=== PATIENT | male | born 1940 | race Caucasian/White ===

== ENCOUNTER → 2020-10-02 11:08 | Outpatient (CLI) | payer MEDICARE, OTHER, SELFPAY ==
[2020-10-02 11:59] LABS: Hematocrit 43.6 % (41-53); Hemoglobin 14.7 g/dL (13.5-17.5); Mean Corpuscular HGB Conc 33.7 % (30-36); Mean Corpuscular Hemoglobin 31.3 PG (26-34); Mean Corpuscular Volume 93.1 fL (80-100); Platelet Count 162 X10^3/uL (150-400); Red Blood Cell Count 4.68 X10^6/uL (4.5-5.9); Red Cell Distribution Width 14.1 % (11.6-14.8); White Blood Cell Count 6.5 X10^3/uL (4.5-11.0)
[2020-10-02 12:21] LABS: Alanine Aminotransferase 42 IU/L (<50); Albumin 4.6 g/dL (3.5-5.0); Albumin Globulin Ratio 1.9 (1.0-2.8); Alkaline Phosphatase 66 U/L (38-126); Aspartate Aminotransferase 51 IU/L (17-59); BUN Creatinine Ratio 25.6 (6-22); Bilirubin Total 0.8 mg/dL (0.2-1.3); Blood Urea Nitrogen 21 mg/dL (9-20); Calcium 9.8 mg/dL (8.4-10.2); Carbon Dioxide 30 mmol/L (22-32); Chloride 104 mmol/L (98-107); Cholesterol 133 mg/dL (140-199); Estimated Glomerular Filt Rate > 60.0 mL/min (>60); Globulin 2.4 g/dL (1.7-4.1); Glucose 103 mg/dL (80-110); HDL Cholesterol 59 mg/dL (40-60); HEMOLYSIS < 15 (0-50); LDL Cholesterol Calculated 63 mg/dL (<100); Potassium 4.9 mmol/L (3.4-5.1); Sodium 140 mmol/L (137-145); Triglycerides 54 mg/dL (35-150)
[2020-10-02 13:07] LABS: Thyroid Stimulating Hormone 1.66 uIU/mL (0.47-4.68)
== END ==
PROVIDERS: Family Provider Internal Medicine; PCP Internal Medicine; Referring Provider Internal Medicine Cardiovascular Disease; Visit Provider Internal Medicine Cardiovascular Disease
DX: I70.0 Atherosclerosis of aorta (principal); I73.9 Peripheral vascular disease, unspecified; I48.20 Chronic atrial fibrillation, unspecified; D68.69 Other thrombophilia; I48.91 Unspecified atrial fibrillation; I10 Essential (primary) hypertension; E78.5 Hyperlipidemia, unspecified; I25.10 Atherosclerotic heart disease of native coronary artery without angina pectoris
CPT/HCPCS: 36415; 80053; 80061; 84443; 85027

== ENCOUNTER → 2020-12-21 13:36 | Outpatient (CLI) | payer MEDICARE, OTHER, SELFPAY ==
[2020-12-21] MEDS: COVID-19 VACC #1, MRNA(MOD) 100 MCG/0.5 ML VIAL IM (13:52)
== END ==
PROVIDERS: Family Provider Internal Medicine; PCP Internal Medicine; Visit Provider Internal Medicine
DX: Z23 Encounter for immunization (principal)
CPT/HCPCS: 0011A; 91301

== ENCOUNTER → 2021-01-18 13:12 | Outpatient (CLI) | payer MEDICARE, OTHER, SELFPAY ==
[2021-01-18] MEDS: COVID-19 VACC #2, MRNA(MOD) 100 MCG/0.5 ML VIAL IM (13:18)
== END ==
PROVIDERS: Family Provider Internal Medicine; PCP Internal Medicine; Visit Provider Internal Medicine
DX: Z23 Encounter for immunization (principal)
CPT/HCPCS: 0012A; 91301

== ENCOUNTER → 2022-05-21 11:19 | Outpatient (CLI) | payer MEDICARE, OTHER, SELFPAY ==
[2022-05-21 12:36] LABS: Hematocrit 37.3 % (41-53); Hemoglobin 12.9 g/dL (13.5-17.5); Mean Corpuscular HGB Conc 34.5 % (30-36); Mean Corpuscular Hemoglobin 31.4 PG (26-34); Mean Corpuscular Volume 91.1 fL (80-100); Platelet Count 147 X10^3/uL (150-400); Red Cell Distribution Width 14.3 % (11.6-14.8); White Blood Cell Count 5.1 X10^3/uL (4.5-11.0)
[2022-05-21 13:17] LABS: HEMOLYSIS < 15 (0-50); Iron 89 ug/dL (49-181)
[2022-05-21 13:28] LABS: Alanine Aminotransferase 41 IU/L (<50); Albumin 4.6 g/dL (3.5-5.0); Albumin Globulin Ratio 2.3 (1.0-2.8); Alkaline Phosphatase 67 U/L (38-126); Aspartate Aminotransferase 47 IU/L (17-59); BUN Creatinine Ratio 21.3 (6-22); Bilirubin Total 0.7 mg/dL (0.2-1.3); Blood Urea Nitrogen 19 mg/dL (9-20); Calcium 9.5 mg/dL (8.4-10.2); Carbon Dioxide 29 mmol/L (22-32); Chloride 104 mmol/L (98-107); Cholesterol 126 mg/dL (140-199); Estimated Glomerular Filt Rate > 60 mL/min (>60); Glucose 67 mg/dL (80-110); HDL Cholesterol 78 mg/dL (40-60); LDL Cholesterol Calculated 36 mg/dL (<100); Potassium 4.5 mmol/L (3.4-5.1); Sodium 140 mmol/L (137-145); Total Protein 6.6 g/dL (6.3-8.2); Triglycerides 60 mg/dL (35-150)
[2022-05-21 13:29] LABS: Percent Iron Saturation 29 % (20-50); Total Iron Binding Capacity 305 ug/dL (261-462); Transferrin 234 mg/dL (206-381)
[2022-05-21 13:50] LABS: TSH w/ Reflex to FT4 1.24 uIU/mL (0.47-4.68)
[2022-05-21 14:04] LABS: Ferritin 133 ng/mL (18-464); HEMOLYSIS < 15 (0-50)
[2022-05-21 14:19] LABS: Vitamin B12 505 pg/mL (239-931)
== END ==
PROVIDERS: Family Provider Internal Medicine; PCP Internal Medicine; Referring Provider Internal Medicine; Visit Provider Internal Medicine
DX: D64.9 Anemia, unspecified (principal); E53.8 Deficiency of other specified B group vitamins; I48.20 Chronic atrial fibrillation, unspecified; Z79.01 Long term (current) use of anticoagulants; E78.2 Mixed hyperlipidemia
CPT/HCPCS: 36415; 80053; 80061; 82607; 82728; 83540; 83550; 84443; 85027

== ENCOUNTER 2022-05-29 09:13 | Outpatient (RCR) | payer MEDICARE, OTHER, SELFPAY ==
--- NOTE | 2022-05-29 10:09 | ST.OPIE ---
Visit Care Team Role Provider Type Yunier Rivas MD Attending Provider Physician Family Provider Primary Care Provider Referring Provider Specialty: Internal Medicine Address: [address] [place] [address], [id number] Email: [email or web address] Speech-Language Pathology Initial Evaluation [employer] Clinical Swallow Evaluation Start: 05/29/22 09:21 Freq: Status: Active Protocol: Document 05/29/22 09:21 ZS (Rec: 05/29/22 09:27 ZS [id number]) Clinical Swallow Evaluation Session Time Visit Start Time 09:30 Visit Stop Time 10:00 Total Visit Minutes 30 Visit Information Visit Number Initial Evaluation Plan of Care Dates 05/29/2022 - 11/22/2022 Insurance Information Medicare Referral Referring Provider Dr. Rivas Reason for Referral cough and throat clearing with swallowing Setting Assessment Location Outpatient Care Visit Type Note Type Initial evaluation Patient Information Identification Type Name History Cooper Blount is a 81-year-old male referred for speech therapy due to being slightly anemic and having difficulty swallowing. He reported cough and throat clearing about 1-2 times per week over the past 2 years. Jose Alejandro added he sometimes feels like things are sticking in his throat and he has been hoarse. Medical history indicates a mild resting tremor and former smoking. Subjective Observations Jose Alejandro reported increased hoarseness and a family history of vocal polyp. Minimal hoarseness perceived by this [employer] during assessment, and discussed referral to ENT as pt and his have noticed vocal changes in the past year. Pt reported he is slightly anemic and would like to determine if swallowing difficulties may be contributing to this. Reported by Patient Other Symptoms Coughing,Food gets stuck Current Diet Regular Baseline Feeding Method Independent in self-feeding Objective Assessment Mental Status Alert,Responsive,Cooperative Oral Integrity WFL Dentition Within normal limits Lip Function Within normal limits Observation of Lips at Rest Symmetrical Pucker Within normal limits Lip Retraction Within normal limits Alternating Pucker/Lip Retraction Within normal limits Tongue Function Within normal limits Observations of Tongue at Rest Within normal limits Tongue Protrusion Within normal limits Tongue Retraction Within normal limits Tongue Lateralization Within normal limits Jaw Function Within normal limits Observations of Jaw at Rest Within normal limits Jaw Opening Within normal limits Jaw Closing Within normal limits Hard/Soft Palate Function Within normal limits Observations of Hard/Soft Palate Within normal limits Comment Completed oral motor exam. Pt presented with symmetrical structures at rest and in motion. Lip, tongue, and jaw strength and ROM were WNL. Pt maintained labial seal and exhibited hyolaryngeal elevation and excursion WNL. Dentition present and WNL, pt reported no difficulty chewing . Structure and function of oral mechanism appears WNL for the purposes of speech and swallowing. Food and Liquid Trials Position During Assessment Upright (90 degrees),In chair Liquids Trialed Thin,[place] Solids Trialed Puree,Dysphagia Mechanical, Dysphagia Advanced,Mechanical Soft,Regular Administration Type Tea spoon,Cup single sip,Self- feeding Oral Impairment Within normal limits Oral Phase Comments No anterior loss of bolus. A/P propulsion and mastication were timely and efficient. No oral residue observed following swallow. No concerns with oral phase of swallowing at this time. Pharyngeal Impairment Within normal limits Pharyngeal Phase Comments Hyolaryngeal elevation and excursion was WNL. Pt observed to hold his head with slight tilt back when swallowing, and stated his doctor recommended a chin tuck and head turn to either right or left to reduce food going down the wrong way which pt reported is hard to remember to do. No overt signs or symptoms of aspiration observed and no difficulty swallowing reported by pt. Unable to rule out silent aspiration with clinical swallow evaluation. Fatigue/Endurance Endurance WNL Comment No concerns for fatigue reported by pt and no signs of fatigue observed during assessment. Findings Swallowing Function Within normal limits Severity of Swallow Impairment Within normal limits Comment The pt presents with swallowing WNL. Due to concerns for structural or functional abnormalities that are unable to be assessed with clinical swallow evaluation, it is recommended pt participate in modified barium swallow study (MBSS). MBSS will inform plan of care and determine if speech therapy for swallowing is necessary at this time. Pt may also consider a referral for an ENT for visualization of any structural abnormalities on the vocal folds that may be impacting vocal quality. Recommendations Instrumental Assessment Yes Recommended Solids Regular Recommended Liquids Thin Safety Precautions/Swallowing Remain upright (90 degrees) Recommendations during all oral intake,Upright position at least 30 minutes after meals,Small bites and sips when eating,Slow rate; swallow between bites Medication Recommendations As Tolerated Referrals Recommended Referrals Otolaryngology/ENT Education Patient/Caregiver Education Described results of evaluation,Patient expressed understanding of evaluation, Patient expressed agreement with goals & treatment plans, Patient expressed understanding of safety precautions,Patient expressed understanding of feeding recommendations Goals Short-term Goals 1. Pt will participate in modified barium swallow study to inform plan of care.
--- NOTE | 2022-05-29 10:11 | ST.OPIE ---
Visit Care Team Role Provider Type Yunier Rivas MD Attending Provider Physician Family Provider Primary Care Provider Referring Provider Specialty: Internal Medicine Address: [address] [place] [address], [id number] Email: [email or web address] Speech-Language Pathology Initial Evaluation [employer] Clinical Swallow Evaluation Start: 05/29/22 09:21 Freq: Status: Active Protocol: Document 05/29/22 09:21 ZS (Rec: 05/29/22 09:27 ZS [id number]) Clinical Swallow Evaluation Session Time Visit Start Time 09:30 Visit Stop Time 10:00 Total Visit Minutes 30 Visit Information Visit Number Initial Evaluation Plan of Care Dates 05/29/2022 - 11/22/2022 Insurance Information Medicare Referral Referring Provider Dr. Rivas Reason for Referral cough and throat clearing with swallowing Setting Assessment Location Outpatient Care Visit Type Note Type Initial evaluation Patient Information Identification Type Name History Cooper Blount is a 81-year-old male referred for speech therapy due to being slightly anemic and having difficulty swallowing. He reported cough and throat clearing about 1-2 times per week over the past 2 years. Jose Alejandro added he sometimes feels like things are sticking in his throat and he has been hoarse. Medical history indicates a mild resting tremor and former smoking. Subjective Observations Jose Alejandro reported increased hoarseness and a family history of vocal polyp. Minimal hoarseness perceived by this [employer] ENGINEER during assessment, and discussed referral to ENT as pt and his have noticed vocal changes in the past year. Pt reported he is slightly anemic and would like to determine if swallowing difficulties may be contributing to this. Reported by Patient Other Symptoms Coughing,Food gets stuck Current Diet Regular Baseline Feeding Method Independent in self-feeding Objective Assessment Mental Status Alert,Responsive,Cooperative Oral Integrity WFL Dentition Within normal limits Lip Function Within normal limits Observation of Lips at Rest Symmetrical Pucker Within normal limits Lip Retraction Within normal limits Alternating Pucker/Lip Retraction Within normal limits Tongue Function Within normal limits Observations of Tongue at Rest Within normal limits Tongue Protrusion Within normal limits Tongue Retraction Within normal limits Tongue Lateralization Within normal limits Jaw Function Within normal limits Observations of Jaw at Rest Within normal limits Jaw Opening Within normal limits Jaw Closing Within normal limits Hard/Soft Palate Function Within normal limits Observations of Hard/Soft Palate Within normal limits Comment Completed oral motor exam. Pt presented with symmetrical structures at rest and in motion. Lip, tongue, and jaw strength and ROM were WNL. Pt maintained labial seal and exhibited hyolaryngeal elevation and excursion WNL. Dentition present and WNL, pt reported no difficulty chewing . Structure and function of oral mechanism appears WNL for the purposes of speech and swallowing. Food and Liquid Trials Position During Assessment Upright (90 degrees),In chair Liquids Trialed Thin,[place]menia Solids Trialed Puree,Dysphagia Mechanical, Dysphagia Advanced,Mechanical Soft,Regular Administration Type Tea spoon,Cup single sip,Self- feeding Oral Impairment Within normal limits Oral Phase Comments No anterior loss of bolus. A/P propulsion and mastication were timely and efficient. No oral residue observed following swallow. No concerns with oral phase of swallowing at this time. Pharyngeal Impairment Within normal limits Pharyngeal Phase Comments Hyolaryngeal elevation and excursion was WNL. Pt observed to hold his head with slight tilt back when swallowing, and stated his doctor recommended a chin tuck and head turn to either right or left to reduce food going down the wrong way which pt reported is hard to remember to do. No overt signs or symptoms of aspiration observed and no difficulty swallowing reported by pt. Unable to rule out silent aspiration with clinical swallow evaluation. Fatigue/Endurance Endurance WNL Comment No concerns for fatigue reported by pt and no signs of fatigue observed during assessment. Findings Swallowing Function Within normal limits Severity of Swallow Impairment Within normal limits Comment The pt presents with swallowing WNL. Due to concerns for structral or functional abnormalities that are unable to be assessed with clinical swallow evaluation, it is recommended pt participate in modified barium swallow study (MBSS). MBSS will inform plan of care and determine if speech therapy for swallowing is necessary at this time. Pt may also consider a referral for an ENT for visualization of any structural abnormalities on the vocal folds that may be impacting vocal quality. Recommendations Instrumental Assessment Yes Recommended Solids Regular Recommended Liquids Thin Safety Precautions/Swallowing Remain upright (90 degrees) Recommendations during all oral intake,Upright position at least 30 minutes after meals,Small bites and sips when eating,Slow rate; swallow between bites Medication Recommendations As Tolerated Referrals Recommended Referrals Otolaryngology/ENT Education Patient/Caregiver Education Described results of evaluation,Patient expressed understanding of evaluation, Patient expressed agreement with goals & treatment plans, Patient expressed understanding of safety precautions,Patient expressed understanding of feeding recommendations Goals Short-term Goals 1. Pt will participate in modified barium swallow study to inform plan of care.
--- NOTE | 2022-05-29 10:11 | ST.OPPOC ---
Physical, Occupational & Speech Therapy At [facility] Visit Care Team Role Provider Type Yunier Rivas MD Attending Provider Physician Family Provider Primary Care Provider Referring Provider Address: [address] [place] [address], [id number] Speech Pathology Plan of Care Plan of Care Dates 05/29/2022 - 11/22/[address] Rivas Patient History Cooper Blount is a 81-year-old male referred for speech therapy due to being slightly anemic and having difficulty swallowing. He reported cough and throat clearing about 1-2 times per week over the past 2 years. Jose Alejandro added he sometimes feels like things are sticking in his throat and he has been hoarse. Medical history indicates a mild resting tremor and former smoking. Short-term Goals 1. Pt will participate in modified barium swallow study to inform plan of care. Comment: Electronically Signed by: TRISHA Candelaria 05/29/22 1011 If you are in agreement with this Plan of Care, please return a signed and dated copy. I have reviewed this Plan of Care and certify that the skilled therapy services above are required to meet the patient?s needs. Physician Signature Date Printed Name and Credentials Clinical Instructor Signature Printed Name and Credentials
--- NOTE | 2022-07-31 14:30 | ST.OPDS ---
Visit Care Team Role Provider Type Yunier Rivas MD Attending Provider Physician Family Provider Primary Care Provider Referring Provider Address: [address] [place] [address], [id number] CUTTING AND SPLICING SUPERVISOR Treatment Note CUTTING AND SPLICING SUPERVISOR Treatment Note Start: 07/31/22 14:27 Freq: Status: Active Protocol: Document 07/31/22 14:28 ZS (Rec: 07/31/22 14:30 ZS [id number]) Speech Pathology Treatment Note Visit Information Plan of Care Dates 05/29/2022 - 11/22/2022 Insurance Information Medicare Setting Treatment Setting Outpatient Care Visit Type Note Type Discharge Summary General Information Patient History Cooper Blount is a 81-year-old male referred for speech therapy due to being slightly anemic and having difficulty swallowing. He reported cough and throat clearing about 1-2 times per week over the past 2 years. Jose Alejandro added he sometimes feels like things are sticking in his throat and he has been hoarse. Medical history indicates a mild resting tremor and former smoking. Jose Alejandro reported increased hoarseness and a family history of vocal polyp. Minimal hoarseness perceived by this CUTTING AND SPLICING SUPERVISOR during assessment, and discussed referral to ENT as pt and his have noticed vocal changes in the past year. Pt reported he is slightly anemic and would like to determine if swallowing difficulties may be contributing to this. The pt presents with swallowing WNL. Due to concerns for structural or functional abnormalities that are unable to be assessed with clinical swallow evaluation, it is recommended pt participate in modified barium swallow study (MBSS). MBSS will inform plan of care and determine if speech therapy for swallowing is necessary at this time. Pt may also consider a referral for an ENT for visualization of any structural abnormalities on the vocal folds that may be impacting vocal quality. Subjective Identification Type Name Identification Reconciled With Medical Record Chief Complaint(s) Swallowing Objective Short Term Goals 1. Pt will participate in modified barium swallow study to inform plan of care. Treatment Activities Called pt to follow-up regarding modified barium swallow study and POC. Pt indicated his PCP is not going to pursue a MBS at this time and pt is in agreement with this decision. Discharging from speech therapy. Plan Provided Patient/Caregiver Instruction Plan of Care Therapy Recommendations Discharge from Speech Therapy Reason for Discharge Per PCP, no further testing at this time.
== END 2022-08-01 08:02 ==
LOC: SP 09:13
PROVIDERS: Family Provider Internal Medicine; PCP Internal Medicine; Referring Provider Internal Medicine; Visit Provider Internal Medicine
DX: R13.10 Dysphagia, unspecified (principal)
CPT/HCPCS: 92610

== ENCOUNTER → 2022-06-04 10:18 | Outpatient (CLI) | payer MEDICARE, OTHER, SELFPAY ==
[2022-06-04 12:44] LABS: COVID19 -Nasal RAPID Negative (Negative)
== END ==
PROVIDERS: Family Provider Internal Medicine; PCP Internal Medicine; Visit Provider Surgery
DX: Z20.822 Contact with and (suspected) exposure to COVID-19 (principal); Z01.812 Encounter for preprocedural laboratory examination
CPT/HCPCS: 87635; C9803

== ENCOUNTER 2022-06-05 08:03 | Day surgery (SDC) | payer MEDICARE, OTHER, SELFPAY ==
--- NOTE | 2022-06-05 | PATH_ITS ---
[facility] Accession Number: [id number] No. of containers..02 Tissue . 01 Material submitted: . PART A: esophagus - MID ESOPHAGUS BIOPSY PART B: esophagus - UPPER ESOPHAGUS BIOPSY . 01 Diagnosis: A-B. 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 Intraepithelial eosinophils are not increased. Negative for dysplasia and malignancy. JNL 06/06/2022 1224 Local . 01 Electronically signed: . Candy Curran MD, Pathologist NPI- [id number] . 01 Gross description: . Part A: MID ESOPHAGUS BIOPSY: Received in formalin are 3 fragment(s) of chairez, soft tissue measuring 0.4 x 0.1 x 0.1 cm to 0.3 x 0.2 x 0.1 cm submitted entirely in 1 cassette(s) Part B: UPPER ESOPHAGUS BIOPSY: Received in formalin are 4 fragment(s) of chairez, soft tissue measuring 0.4 x 0.2 x 0.1 cm to 0.2 x 0.1 x 0.1 cm submitted entirely in 1 cassette(s) /CPE 06/06/2022 0259 Local . 01 Pathologist provided ICD-10: R13.10 . 01 CPT . 638217, [id number] Specimen Comment: A courtesy copy of this report has been sent to [phone] Performed at: 01 [facility] [address] [place] [address], [place], [place] [id number] MD Richmond Harrison MD Phone: [phone]
[2022-06-05 08:29] VITALS: BP 152/78; PULSE 44; RESP 16; TEMP 36.2; O2SAT 98; BMI 25.6
[2022-06-05] MEDS: LACTATED RINGERS 1,000 ML 150 ML IV (08:52)
--- NOTE | 2022-06-05 09:09 | PM.PREOP ---
Pre-operative Note COVID-19 COVID-19 status: Negative Result date/Date tested (Pos, Neg/Pending): 06/04/22 Interval Note History & Physical reviewed/Exam performed by Physician: Yes Changes to H&P: No ASA Class (for procedural sedation): II
[2022-06-05] MEDS: LIDOCAINE 4% SOLN 50 ML 20 ML TOP (09:15)
[2022-06-05] MEDS: fentaNYL 250 MCG/5 ML INJ 50 MCG IV (09:17)
[2022-06-05] MEDS: MIDAZOLAM 5 MG/5 ML VIAL 3 MG IV (09:17)
--- NOTE | 2022-06-05 09:27 | PM.OP.EGD ---
Operative Date/Time/Diagnoses Date of procedure: 06/05/22 Time of procedure: 09:28 Pre-op diagnosis: Dysphagia Post-op diagnosis: same Procedure & Clinicians Study performed: Esophagogastroduodenoscopy Same procedure as scheduled: Yes Surgeon: Urbano Card Procedure Notes Procedure in detail: Surgeon: Urbano Card MD A timeout was performed. Topical lidocaine was administered to the posterior oropharynx. A bite blocked was placed. The patient was positioned in the left lateral decubitus position. Sedation was administered with Versed and fentanyl. The endoscope was inserted through the bite block and passed through the esophagus and stomach and into the duodenum. The duodenal mucosa appeared normal. A photograph was taken. The scope was withdrawn into the duodenal bulb and no abnormality was noted. The scope was withdrawn into the stomach. No abnormalities were noted in the stomach. The scope was retroflexed and no hiatal hernia was noted. The scope was withdrawn into the esophagus and the distal esophagus appeared normal. The upper and middle thirds of the esophagus demonstrated nodular irregularity of the mucosa without a jarod mass ulceration. Random biopsies were taken from the midesophagus and upper esophagus with cold forceps. The scope was withdrawn. The patient was awakened and brought to recovery. Versed: 3 Fentanyl: 50 Findings: Irregularity of the mid and upper esophagus without jarod mass or ulceration Sedation minutes: 8 Post-procedure Recommendations: Will call with biopsy results Disposition: PACU
[2022-06-05 09:31] VITALS: BP 120/70; PULSE 47; RESP 10; TEMP 36; O2SAT 98
[2022-06-05 09:36] VITALS: BP 119/44; PULSE 53; RESP 13; TEMP 36.4; O2SAT 97
[2022-06-05 09:41] VITALS: BP 121/60; PULSE 50; RESP 12; TEMP 36.1; O2SAT 97
[2022-06-05 09:51] VITALS: BP 113/68; PULSE 52; RESP 14; TEMP 36.4; O2SAT 98
--- NOTE | 2022-06-05 09:57 | SUR.PHASEII ---
Verbal order received from Dr Card that patient may restart Xarelto today at normal dose and time.
== END 2022-06-05 10:09 | disposition home or self-care (01) ==
PROVIDERS: Family Provider Internal Medicine; PCP Internal Medicine; Referring Provider Surgery; Visit Provider Surgery
PROC: 0DJ08ZZ Inspection of Upper Intestinal Tract, Via Natural or Artificial Opening Endoscopic (ICD-10-PCS; CPT 43235; principal; 2022-06-05 09:15)
DX: R13.10 Dysphagia, unspecified (principal); D64.9 Anemia, unspecified; I48.20 Chronic atrial fibrillation, unspecified; N40.1 Benign prostatic hyperplasia with lower urinary tract symptoms; I10 Essential (primary) hypertension; E78.2 Mixed hyperlipidemia; Z86.010 Personal history of colon polyps; Z79.01 Long term (current) use of anticoagulants; Z86.718 Personal history of other venous thrombosis and embolism; Z87.891 Personal history of nicotine dependence
CPT/HCPCS: 43239; 99152; J2250; J3010

== ENCOUNTER 2022-06-08 09:59 | Emergency (ER) | payer MEDICARE, OTHER, SELFPAY ==
[2022-06-08 10:06] VITALS: BP 183/82; PULSE 52; RESP 18; O2SAT 99
--- NOTE | 2022-06-08 10:09 | DI.CT.S_ITS ---
PROCEDURE: CT HEAD/BRAIN WO CON INDICATIONS: fall 3 days ago, anticoagulated TECHNIQUE: Noncontrast 4.5 mm thick angled axial sections acquired from the foramen magnum to the vertex, with coronal and sagittal reformats. For radiation dose reduction, the following was used: automated exposure control, adjustment of mA and/or kV according to patient size. COMPARISON: None. FINDINGS: Image quality: Excellent. CSF spaces: Basal cisterns are patent. No extra-axial fluid collections. Ventricles are normal in size and shape. Brain: No midline shift. No intracranial masses or hemorrhage. Garcia-white matter interface is normal. Mild atrophy and multifocal white matter chronic ischemic change. There is enlarged perivascular space on the left, and mild senescent calcification in both basal ganglia. Skull and face: Calvarium and visualized facial bones are intact, without suspicious lesions. Sinuses: Visualized sinuses and mastoids are clear. IMPRESSION: Atrophy and chronic ischemic change without acute hemorrhage or mass effect. Approved by: Morro Somers M.D. on 06/08/2022 at 10:23
--- NOTE | 2022-06-08 10:26 | ED.FALL ---
HPI - Fall General Chief Complaint: Fall Stated Complaint: Fall 3 days ago- thinks broken rib right side Time Seen by Provider: 06/08/22 10:26 Source: patient Mode of arrival: Ambulatory History of Present Illness HPI Narrative: Patient here for evaluation of right lower posterior rib pain after he fell last week either Thursday or Thursday at home. Patient states he is on Xarelto for atrial fibrillation. He does have a [place] filter for history DVTs from nearly 20 years ago. Patient states nearly 20 years ago he did have a very bad fall and had bleeding in the brain. Since then his balance has not been the same. Last week he thought he was off balance when he was stepping back when in fact he states he really was not off balance and he tried to overcorrect but fell backwards breaking a table/hitting it with his right lower posterior ribs. He did hit his head on the left occipital scalp area. No loss of consciousness. Since then no headache dizziness nausea vision changes or altered mental status. Denies any neck pain or midline spine pain. Denies any other injuries. Related Data Home Medications Medication Instructions Recorded Confirmed atorvastatin 40 mg tablet 40 mg PO HS ##0 01/24/18 06/05/22 metoprolol succinate 25 mg 12.5 mg PO QDAY ##0 01/24/18 06/05/22 tablet,extended release 24 hr (Toprol XL) allopurinol 100 mg tablet 100 mg PO BID 04/25/22 06/05/22 compress.stocking,knee,reg,med 04/25/22 06/02/22 (Jobst Anti-Embolism Stocking) ezetimibe 10 mg tablet 10 mg PO DAILY 04/25/22 06/05/22 multivitamin 0.5 tab PO BID 04/25/22 06/05/22 rivaroxaban 20 mg tablet (Xarelto) 20 mg PO DAILY 04/25/22 06/05/22 Previous Rx's Medication Instructions Recorded hydrocodone 5 mg-acetaminophen 325 1 tab PO Q6H PRN pain #10 tabs 06/08/22 mg tablet ondansetron 4 mg disintegrating 4 mg PO Q8H PRN nausea and 06/08/22 tablet vomiting #10 tabs Allergies Allergy/AdvReac Type Severity Reaction Status Date / Time amoxicillin [AMOXICILLIN] Allergy Mild RASH AND Verified 06/05/22 08:25 ITCHING Review of Systems Review of Systems Narrative: GENERAL: Denies chills, fatigue, malaise, fever, sweats. HEENT: Denies sinus pain, ear pain, sore throat RESPIRATORY: Denies dyspnea, cough CARDIOVASCULAR: Denies chest pain, palpitations GASTROINTESTINAL: Denies nausea, vomiting, abdominal pain : Denies dysuria, frequency, hematuria MUSCULOSKELETAL: Positive for muscle or bony pain SKIN: Denies rash, skin lesions, negative for skin wound NEUROLOGIC: Denies weakness, numbness ROS Unobtainable: All systems reviewed & are unremarkable except as noted in HPI and below Patient History Medical History Anemia BPH w urinary obs/LUTS Chronic anticoagulation Chronic atrial fibrillation Dysphagia Essential hypertension Gait instability Gout History of colonic polyps History of DVT (deep vein thrombosis) Mixed hyperlipidemia Venous insufficiency Social History household members: spouse Smoking Status: Former smoker alcohol intake: never Smoking Status: Former smoker Substance Use Type: does not use Exam Narrative Exam Narrative: GENERAL: in no distress, not toxic not dyspneic HEAD: Normocephalic. Mild tenderness to the left occipital scalp but no can not ecchymosis or edema or crepitus or step-off. EYES: Pupils equal round No scleral icterus. ENT: Mucous membranes moist. NECK: Trachea midline. CARDIOVASCULAR: Regular rate and rhythm without murmurs RESPIRATORY: Clear to auscultation. Breath sounds equal bilaterally. No wheezes, rales, or rhonchi. GASTROINTESTINAL: Abdomen soft, non-tender EXTREMITIES: No gross deformities. Nontender no gross deformities of the bilateral shoulders elbows wrists pelvis hips knees and ankles. BACK: No flank tenderness. No midline tenderness of the thoracic or lumbar spine. There is reproducible proximal rib tenderness of the inferior ribs on the right side, on palpation and deep breath no crepitus or flail. No ecchymosis or bruising seen. No abrasion. NEURO: AOx4. Clear speech no facial droop light touch intact to bilateral face and hands with strong equal server programmer. SKIN: Warm and dry PSYCH: Not anxious, is cooperative Initial Vital Signs Initial Vital Signs: Vital Signs Pulse Rate 52 L 06/08/22 10:06 Respiratory Rate 18 06/08/22 10:06 Blood Pressure 183/82 H 06/08/22 10:06 Pulse Oximetry 99 06/08/22 10:06 Oxygen Delivery Method 06/08/22 10:06 Course Course Course Narrative: No new issues during course of stay Orders Ordered: ED Orders 06/08/22 10:09 CT head/brain wo con Stat 06/08/22 10:34 CT chest abd pel wo con Stat Reevaluation(s) Reevaluation #1: Reviewed results with patient and . They do desire pain medication to help sleep at night. He gets up often to go the bathroom and the ribs hurt him and has hard time getting back to sleep. Return precautions reviewed with patient. CT scan imaging for lungs to be re-evaluated in 3 months with primary care. Time: 12:47 Vital Signs Vital signs: Vital Signs - 8 hr 06/08/22 10:06 Pulse Rate 52 L Respiratory Rate 18 Blood Pressure 183/82 H Pulse Oximetry 99 Oxygen Delivery Method Room Air MDM - Fall Differential Diagnosis Differential diagnosis: Likely compression fracture and other (Rib fractures/scalp contusion/intracranial bleed/contusion.) Imaging Data CT scan - head: Radiologist's Impression: [place] [address] CT Scan Report Signed Patient: Cooper Herrera MR#: [id number] : 1940 Acct:[id number] Age/Sex: 81 / M Date of Service: 06/08/22 Loc: ED Accession Number: [id number] ?? Procedure: CT head/brain wo con Ordering Provider: Yassine Michaels MD PROCEDURE:? CT HEAD/BRAIN WO CON ? INDICATIONS:? fall 3 days ago, anticoagulated ? TECHNIQUE:? Noncontrast 4.5 mm thick angled axial sections acquired from the foramen magnum to the vertex, with coronal and sagittal reformats.? For radiation dose reduction, the following was used:? automated exposure control, adjustment of mA and/or kV according to patient size.? ? COMPARISON:? None. ? FINDINGS:? Image quality:? Excellent.? ? CSF spaces:? Basal cisterns are patent.? No extra-axial fluid collections.? Ventricles are normal in size and shape.? ? Brain:? No midline shift.? No intracranial masses or hemorrhage.? Garcia-white matter interface is normal.? Mild atrophy and multifocal white matter chronic ischemic change.? There is enlarged perivascular space on the left, and mild senescent calcification in both basal ganglia. ? Skull and face:? Calvarium and visualized facial bones are intact, without suspicious lesions.? ? Sinuses:? Visualized sinuses and mastoids are clear.? ? IMPRESSION:? ? Atrophy and chronic ischemic change without acute hemorrhage or mass effect. ? ? ? Approved by: Morro Somers M.D. on 06/08/2022 at 10:23? CT chest abdomen and pelvis: Radiologist's Impression: [place] [address] CT Scan Report Signed Patient: Cooper Herrera MR#: [id number] : 1940 Acct:[id number] Age/Sex: 81 / M Date of Service: 06/08/22 Loc: ED Accession Number: [id number] ?? Procedure: CT chest abd pel wo con Ordering Provider: Yassine Michaels MD PROCEDURE:? CT CHEST ABD PEL WO CON ? INDICATIONS:? Fall/right-sided pain ? TECHNIQUE:? After the administration of oral contrast, 5 mm thick sections acquired from the lung apices to the symphysis pubis.? 5 mm thick coronal and sagittal reformats acquired, with additional 7 mm coronal MIP reformats through the lungs.? For radiation dose reduction, the following was used:? automated exposure control, adjustment of mA and/or kV according to patient size.? ? COMPARISON:? None. ? FINDINGS: ? Chest: ? Cardiovascular:? Heart size is normal.? No evidence of pulmonary embolism, aortic aneurysm or dissection.? Coronary artery vascular calcification present. ? Lungs and pleural spaces:? Right lower lobe ground-glass nodule measures 1.3 cm.? Remainder of the lungs and pleural spaces are clear. ? Lymph nodes:? No mediastinal, hilar or axillary adenopathy. ? Mediastinum:? Unremarkable.? No hiatal hernia.? Thyroid within normal limits. ? Chest Wall and Bones:? Acute posterior rib fractures involve the right 11th and 10th ribs.? No pneumothorax or pulmonary contusion.? Otherwise the sternum and thoracic spine is intact.? Degenerative disc space narrowing and marginal osteophytes noted in the thoracic spine ? Abdomen and Pelvis: ? Liver:? Normal in size and attenuation. No contour deformity present. Biliary system:? No calcified cholelithiasis or pericholecystic inflammation.? No intra or extrahepatic bile duct dilatation. ? Pancreas:? Unremarkable without mass or inflammation evident. ? Spleen:? Normal in size and density. ? Adrenals:? Small 9 mm right adrenal nodule is low-density, probably reflects adenoma.? Minimal peripheral calcification present. ? Reproductive system:? Unremarkable as visualized. ? Urinary system:? Nonobstructive 3 mm right renal calculus.? No hydronephrosis bilaterally. ? Gastrointestinal system:? Moderate fecal debris throughout the colon without evidence of obstruction. ? Lymph nodes:? No mesenteric or retroperitoneal adenopathy. ? Peritoneal spaces: ? No free air. No free fluid.? ? Vasculature:? The IVC, aorta and iliac vasculature are unremarkable. ? Abdominal wall:? Abdominal wall intact without evidence of ventral or inguinal hernias. ? Musculoskeletal:? Lower lumbar spine posterolateral fusion mass in good position.? Several old right pelvic fractures appear well healed with anterior plate and screw hardware.? No evidence of acute pelvic fracture. ? IMPRESSION: ? 1.? Nondisplaced posterior right 10th and 11th rib fractures.? No pulmonary contusion or pneumothorax. ? 2. Old wall healed right-sided pelvic fractures with associated instrumentation.? No acute fracture or hardware failure. ? 3. Incidental 1.3 cm right lower lobe pulmonary ground-glass nodule.? Consider 3 month follow-up CT to assess stability. ? ? ? Approved by: Morro Somers M.D. on 06/08/2022 at 11:00? MDM Narrative Medical decision making narrative: Appropriate for discharge home. Exam and imaging are reassuring. Reviewed results with patient and . Patient cannot take NSAIDs due to Xarelto. Appropriate for pain medication to help sleep at night. Return precautions reviewed with them. They will follow-up in 3 months for findings on CT scan imaging of the lung. Discharge Plan Departure Patient Disposition: Home Clinical Impression: Multiple rib fractures, Contusion of scalp Instructions: DI for Rib Fracture, DI for Contusion, DI for Closed Head Injury Activity Restrictions/Additional Instructions: No driving or operating machinery when taking prescribed pain medication. See family doctor this week for re-evaluation. Use incentive spirometer each hour while awake to exercise the lungs and to prevent pneumonia. Return if worse or for any questions or concerns. See family doctor for re-evaluation possible CT scan of findings on CT scan of your right lung. Prescriptions: New hydrocodone-acetaminophen 5-325 mg tablet 1 tab PO Q6H PRN (Reason: pain) Qty: 10 0RF ondansetron 4 mg tablet,disintegrating 4 mg PO Q8H PRN (Reason: nausea and vomiting) Qty: 10 0RF No Action atorvastatin 40 MG tablet 40 mg PO HS Qty: 0 metoprolol succinate [Toprol XL] 25 MG tablet extended release 24 hr 12.5 mg PO QDAY Qty: 0 ezetimibe 10 mg tablet 10 mg PO DAILY Label Comments: TAKE 1 TABLET BY MOUTH DAILY. GENERIC EQUIVALENT FOR ZETIA Xarelto 20 mg tablet 20 mg PO DAILY Label Comments: TAKE 1 TABLET BY MOUTH EVERY DAY NEEDED allopurinol 100 mg tablet 100 mg PO BID multivitamin Tablet 0.5 tab PO BID (DME) Jobst Anti-Embolism Stocking Misc See Rx Instructions .Route Rx Instructions: Jobst support socks, knee high, open toe, 30-40 mmHg Referrals: Yunier Rivas MD [Primary Care Provider] - Visit Report Forms: Patient Portal/API
--- NOTE | 2022-06-08 10:34 | DI.CT.S_ITS ---
PROCEDURE: CT CHEST ABD PEL WO CON INDICATIONS: Fall/right-sided pain TECHNIQUE: After the administration of oral contrast, 5 mm thick sections acquired from the lung apices to the symphysis pubis. 5 mm thick coronal and sagittal reformats acquired, with additional 7 mm coronal MIP reformats through the lungs. For radiation dose reduction, the following was used: automated exposure control, adjustment of mA and/or kV according to patient size. COMPARISON: None. FINDINGS: Chest: Cardiovascular: Heart size is normal. No evidence of pulmonary embolism, aortic aneurysm or dissection. Coronary artery vascular calcification present. Lungs and pleural spaces: Right lower lobe ground-glass nodule measures 1.3 cm. Remainder of the lungs and pleural spaces are clear. Lymph nodes: No mediastinal, hilar or axillary adenopathy. Mediastinum: Unremarkable. No hiatal hernia. Thyroid within normal limits. Chest Wall and Bones: Acute posterior rib fractures involve the right 11th and 10th ribs. No pneumothorax or pulmonary contusion. Otherwise the sternum and thoracic spine is intact. Degenerative disc space narrowing and marginal osteophytes noted in the thoracic spine Abdomen and Pelvis: Liver: Normal in size and attenuation. No contour deformity present. Biliary system: No calcified cholelithiasis or pericholecystic inflammation. No intra or extrahepatic bile duct dilatation. Pancreas: Unremarkable without mass or inflammation evident. Spleen: Normal in size and density. Adrenals: Small 9 mm right adrenal nodule is low-density, probably reflects adenoma. Minimal peripheral calcification present. Reproductive system: Unremarkable as visualized. Urinary system: Nonobstructive 3 mm right renal calculus. No hydronephrosis bilaterally. Gastrointestinal system: Moderate fecal debris throughout the colon without evidence of obstruction. Lymph nodes: No mesenteric or retroperitoneal adenopathy. Peritoneal spaces: No free air. No free fluid. Vasculature: The IVC, aorta and iliac vasculature are unremarkable. Abdominal wall: Abdominal wall intact without evidence of ventral or inguinal hernias. Musculoskeletal: Lower lumbar spine posterolateral fusion mass in good position. Several old right pelvic fractures appear well healed with anterior plate and screw hardware. No evidence of acute pelvic fracture. IMPRESSION: 1. Nondisplaced posterior right 10th and 11th rib fractures. No pulmonary contusion or pneumothorax. 2. Old wall healed right-sided pelvic fractures with associated instrumentation. No acute fracture or hardware failure. 3. Incidental 1.3 cm right lower lobe pulmonary ground-glass nodule. Consider 3 month follow-up CT to assess stability. Approved by: Morro Somers M.D. on 06/08/2022 at 11:00
--- NOTE | 2022-06-08 12:55 | PC.NURSE ---
Pt educated on incentive spirometer and use, pt provided teach back and demonstrated proper use.
== END 2022-06-08 12:57 | disposition home or self-care (01) ==
PROVIDERS: Emergency Provider Emergency Medicine; Family Provider Internal Medicine; PCP Internal Medicine
DX: S22.41XA Multiple fractures of ribs, right side, initial encounter for closed fracture (principal); S00.03XA Contusion of scalp, initial encounter; W18.09XA Striking against other object with subsequent fall, initial encounter; Z79.01 Long term (current) use of anticoagulants
CPT/HCPCS: 70450; 71250; 74176; 99283

== ENCOUNTER 2022-06-23 18:32 | Emergency (ER) | payer MEDICARE, BC, SELFPAY ==
[2022-06-23 19:33] VITALS: BP 153/65; PULSE 63; RESP 15; TEMP 36.4; O2SAT 96; BMI 25.0
== END 2022-06-23 19:41 | disposition left against medical advice (07) ==
PROVIDERS: Emergency Provider Emergency Medicine; Family Provider Internal Medicine; PCP Internal Medicine
CPT/HCPCS: 99281

== ENCOUNTER 2022-09-01 09:31 | Observation (INO) | payer MEDICARE, BC, SELFPAY ==
[2022-09-01] VITALS (11 sets, daily range): BP systolic 103–196; BP diastolic 53–88; PULSE 38–71; RESP 14–25; TEMP 36.1–36.4; O2SAT 93–100; BMI 25.0
--- NOTE | 2022-09-01 09:46 | DI.RAD.S_ITS ---
PROCEDURE: XR CHEST 1V INDICATIONS: chest pain TECHNIQUE: One view of the chest was acquired. COMPARISON: None. FINDINGS: Surgical changes and devices: None. Lungs and pleura: Lungs are clear. No pleural effusions or pneumothorax. Mediastinum: Mediastinal contours appear normal. Heart size is normal. Bones and chest wall: No suspicious bony lesions. Overlying soft tissues appear unremarkable. IMPRESSION: No acute cardiopulmonary findings Approved by: Morro Somers M.D. on 09/01/2022 at 10:00
--- NOTE | 2022-09-01 09:57 | ED_ITS ---
HPI - Chest Pain General Chief Complaint: Chest Pain Stated Complaint: chest pain 3 days xtory afib Time Seen by Provider: 09/01/22 09:51 Source: patient Mode of arrival: Ambulatory Limitations: no limitations History of Present Illness HPI narrative: Patient is a 81-year-old male. Has a history of atrial fibrillation. Is on Xarelto and also 12.5 mg of metoprolol once a day. He states he is in atrial fibrillation all the time. 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 He is here for evaluation because since Thursday when he wakes up in the morning and stands he states that he has very intense left-sided chest discomfort that lasts for minutes and then completely resolves. He states it does seem to get somewhat worse when he takes a deep breath. He states it feels like someone hit him in the chest. He does not particularly feel like his heart is beating fast or slow or skipping beats. He is not get lightheaded. The symptoms resolve. He is able to go about his daily activities. He states that he occasionally gets a during the rest of the day but not as bad as when he wakes up in the morning. Talib sewell normally is very active and walks multiple miles each day. He is not done that since the chest discomfort only because he was worried about it. He is not currently having symptoms the time my exam. He states that his heart rate is frequently in the 50s/low 60s. Related Data Home Medications Medication Instructions Recorded Confirmed metoprolol succinate 25 mg 12.5 mg PO QDAY ##0 01/24/18 06/24/22 tablet,extended release 24 hr (Toprol XL) allopurinol 100 mg tablet 100 mg PO BID 04/25/22 06/24/22 compress.stocking,knee,reg,med 04/25/22 06/24/22 (Jobst Anti-Embolism Stocking) ezetimibe 10 mg tablet 10 mg PO DAILY 04/25/22 06/24/22 multivitamin 0.5 tab PO BID 04/25/22 06/24/22 rivaroxaban 20 mg tablet (Xarelto) 20 mg PO DAILY 04/25/22 06/24/22 rosuvastatin 40 mg tablet 40 mg PO DAILY Cholesterol control 06/30/22 06/30/22 Previous Rx's Medication Instructions Recorded hydrocodone 5 mg-acetaminophen 325 1 tab PO Q6H PRN pain #10 tabs 06/08/22 mg tablet Allergies Allergy/AdvReac Type Severity Reaction Status Date / Time amoxicillin [AMOXICILLIN] Allergy Mild RASH AND Verified 06/30/22 07:54 ITCHING Review of Systems Review of Systems ROS Unobtainable: All systems reviewed & are unremarkable except as noted in HPI and below Patient History Medical History Anemia BPH w urinary obs/LUTS Chronic anticoagulation Chronic atrial fibrillation Dysphagia Essential hypertension Gait instability Gait instability Gout History of colonic polyps History of DVT (deep vein thrombosis) Mixed hyperlipidemia Pilonidal cyst Pulmonary nodule Venous insufficiency Social History household members: spouse Smoking Status: Never smoker alcohol intake: never Smoking Status: Never smoker Substance Use Type: does not use Exam Initial Vital Signs Initial Vital Signs: Vital Signs Temperature 97.1 F L 09/01/22 09:47 Pulse Rate 71 09/01/22 09:47 Respiratory Rate 17 09/01/22 09:47 Blood Pressure 196/88 H 09/01/22 09:47 Pulse Oximetry 99 09/01/22 09:47 Oxygen Delivery Method 09/01/22 09:47 Const General: cooperative, comfortable, well developed and No ill appearing HENKS Head: normal to inspection and normocephalic Chest Chest: No crepitus and No tenderness Resp Effort & Inspection: normal respiratory effort Auscultation: clear to auscultation bilaterally Cardio Rate: bradycardic Rhythm: regular rhythm GI Inspection: normal to inspection Palpation: soft Skin General: no rashes or lesions noted Neuro General: patient alert, patient awake, patient oriented x3 and moves all extremities Extrem General: normal to inspection and capillary refill normal Psych Appearance: grossly normal Scores HEART Score Heart Score history: Moderately Suspicious Heart Score EKG: Normal Heart Score Age: > or = 65 years old Heart Score risk factors: 1-2 risk factors Heart Score troponin: < or = to normal limit Heart Score Total: 4 Course Orders Ordered: ED Orders 09/01/22 09:46 XR chest 1V Stat EKG-12 Lead Stat 09/01/22 10:00 Complete Blood Count AUTO DIFF Stat Comprehensive Metabolic Panel Stat Lipase Stat Magnesium Stat Troponin & CK Cardiac Panel Stat 09/01/22 12:08 Troponin & CK Cardiac Panel Stat Vital Signs Vital signs: Vital Signs - 8 hr 09/01/22 09:47 09/01/22 10:34 09/01/22 11:00 Temperature 97.1 F L Pulse Rate 71 43 L Respiratory Rate 17 17 Blood Pressure 196/88 H 153/74 H Pulse Oximetry 99 100 Oxygen Delivery Method Room Air 09/01/22 11:00 09/01/22 11:30 09/01/22 11:31 Temperature Pulse Rate 42 L 40 L 51 L Respiratory Rate 17 19 14 Blood Pressure Pulse Oximetry 93 100 100 Oxygen Delivery Method 09/01/22 11:31 09/01/22 12:00 09/01/22 12:04 Temperature Pulse Rate 54 L Respiratory Rate 20 Blood Pressure 146/67 H 185/84 H Pulse Oximetry 99 Oxygen Delivery Method 09/01/22 12:04 09/01/22 12:30 09/01/22 12:31 Temperature Pulse Rate 65 38 L Respiratory Rate 25 H 18 Blood Pressure 135/63 Pulse Oximetry 99 100 Oxygen Delivery Method 09/01/22 12:31 Temperature Pulse Rate 41 L Respiratory Rate 17 Blood Pressure Pulse Oximetry 100 Oxygen Delivery Method MDM - Chest Pain Lab Data Attestation: I reviewed the patient's lab results. Result diagrams: 09/01/22 10:00 09/01/22 10:00 Labs: Lab Results 09/01/22 09/01/22 09/01/22 Range/Units 10:00 10:00 12:08 WBC 3.8 L (4.5-11.0) X10^3/uL RBC 4.39 L (4.5-5.9) X10^6/uL Hgb 13.5 (13.5-17.5) g/dL Hct 40.3 L (41-53) % MCV 91.7 (80-100) fL MCH 30.6 (26-34) PG MCHC 33.4 (30-36) % RDW 13.9 (11.6-14.8) % Plt Count 123 L (150-400) X10^3/uL Neut % (Auto) 53.9 (50-75) % Lymph % (Auto) 33.4 (25-40) % Gonzales % (Auto) 10.0 (3-14) % Eos % (Auto) 2.1 (2-4) % Baso % (Auto) 0.6 (0-2) % Neut # (Auto) 2100 (9083-6843) /uL Lymph # (Auto) 1300 (4000-2804) /uL Gonzales # (Auto) 400 (0-900) /uL Eos # (Auto) 100 (0-450) /uL Baso # (Auto) 0 (0-100) /uL Sodium 139 (137-145) mmol/L Potassium 4.2 (3.4-5.1) mmol/L Chloride 104 (98-107) mmol/L Carbon Dioxide 27 (22-32) mmol/L BUN 19 (9-20) mg/dL Creatinine 0.86 (0.66-1.25) mg/dL Estimated GFR > 60 (>60) mL/min BUN/Creatinine Ratio 22.1 H (6-22) Glucose 104 (80-110) mg/dL Calcium 9.6 (8.4-10.2) mg/dL Magnesium 1.8 (1.6-2.3) mg/dL Total Bilirubin 0.6 (0.2-1.3) mg/dL AST 64 H (17-59) IU/L ALT 72 H (<50) IU/L Alkaline Phosphatase 65 (38-126) U/L Total Creatine Kinase 222 H 220 H (55-170) U/L CK-MB (CK-2) 7.33 H 7.41 H (<2.37) ng/mL CK-MB (CK-2) Rel Index 3.3 3.4 (1.5-5.0) % Troponin I 0.024 0.021 (0.01-0.034) ng/mL Total Protein 7.1 (6.3-8.2) g/dL Albumin 4.5 (3.5-5.0) g/dL Globulin 2.6 (1.7-4.1) g/dL Albumin/Globulin Ratio 1.7 (1.0-2.8) Lipase 143 (23-300) U/L Imaging Data Chest x-ray: Radiologist's Impression: [address] [address] XRay Report Signed Patient: Cooper Herrera MR#: [id number] : 1940 Acct:[id number] Age/Sex: 81 / M Date of Service: 09/01/22 Loc: ED Accession Number: [id number] ?? Procedure: XR chest 1V Ordering Provider: Ayush Chaudhry D.O. PROCEDURE:? XR CHEST 1V ? INDICATIONS:? chest pain ? TECHNIQUE:? One view of the chest was acquired.? ? COMPARISON:? None. ? FINDINGS:? ? Surgical changes and devices:? None.? ? Lungs and pleura:? Lungs are clear.? No pleural effusions or pneumothorax.? ? Mediastinum:? Mediastinal contours appear normal.? Heart size is normal.? ? Bones and chest wall:? No suspicious bony lesions.? Overlying soft tissues appear unremarkable.? ? IMPRESSION:? No acute cardiopulmonary findings ? ? ? Approved by: Morro Somers M.D. on 09/01/2022 at 10:00? ECG Data Attestation: I personally reviewed and interpreted this ECG as follows: Interpretation: Atrial fibrillation Ventricular rate of 41 Normal QRS Normal QTC No ST T wave changes MDM Narrative Medical decision making narrative: No chest pain while here in the ER. AFib on his EKG but no ST T wave changes. Chest x-ray is unremarkable. Troponins are unchanged x2. These are not above the 99th percentile/AMI cut off. Had a stress test approximately 4 years ago. Patient is in AFib. Is bradycardic. Is asymptomatic from the bradycardia. He states his heart rate is normally in the 50s. He walks 4 miles a day. He was told in the past that maybe he should come off of his metoprolol but this decision was never definitively made so he still taking 12.5 mg in the evening. Patient has an intermediate risk heart score. Should be admitted to the hospital for further risk stratification. Discussed the case with Dr. Castañeda with Internal Medicine who will admit for further evaluation. Discussed need for admission with the patient. He expressed understanding and agreement plan. Discharge Plan Departure Patient Disposition: Admitted as Observation Clinical Impression: Chest pain, Atrial fibrillation, Bradycardia Admit Date/Time: 09/01/22 12:59 Admit Provider: Kenny Castañeda
[2022-09-01 10:15] LABS: Add Manual Diff / Slide Review NO; Basophils Absolute Auto 0 /uL (0-100); Basophils Percent Auto 0.6 % (0-2); Eosinophils Absolute Auto 100 /uL (0-450); Eosinophils Percent Auto 2.1 % (2-4); Hematocrit 40.3 % (41-53); Hemoglobin 13.5 g/dL (13.5-17.5); Lymphocytes Absolute Auto 1300 /uL (1100-4500); Lymphocytes Percent Auto 33.4 % (25-40); Mean Corpuscular HGB Conc 33.4 % (30-36); Mean Corpuscular Hemoglobin 30.6 PG (26-34); Mean Corpuscular Volume 91.7 fL (80-100); Monocytes Absolute Auto 400 /uL (0-900); Neutrophils Absolute Auto 2100 /uL (1500-7000); Neutrophils Percent Auto 53.9 % (50-75); Platelet Count 123 X10^3/uL (150-400); Red Blood Cell Count 4.39 X10^6/uL (4.5-5.9); Red Cell Distribution Width 13.9 % (11.6-14.8); White Blood Cell Count 3.8 X10^3/uL (4.5-11.0)
[2022-09-01 10:31] LABS: Alanine Aminotransferase 72 IU/L (<50); Albumin 4.5 g/dL (3.5-5.0); Albumin Globulin Ratio 1.7 (1.0-2.8); Alkaline Phosphatase 65 U/L (38-126); Aspartate Aminotransferase 64 IU/L (17-59); BUN Creatinine Ratio 22.1 (6-22); Bilirubin Total 0.6 mg/dL (0.2-1.3); Blood Urea Nitrogen 19 mg/dL (9-20); Calcium 9.6 mg/dL (8.4-10.2); Carbon Dioxide 27 mmol/L (22-32); Chloride 104 mmol/L (98-107); Creatine Kinase 222 U/L (55-170); Estimated Glomerular Filt Rate > 60 mL/min (>60); Globulin 2.6 g/dL (1.7-4.1); Glucose 104 mg/dL (80-110); HEMOLYSIS 17 (0-50); Lipase 143 U/L (23-300); Magnesium 1.8 mg/dL (1.6-2.3); Potassium 4.2 mmol/L (3.4-5.1); Sodium 139 mmol/L (137-145); Total Protein 7.1 g/dL (6.3-8.2)
[2022-09-01 10:43] LABS: Troponin I 0.024 ng/mL (0.01-0.034)
[2022-09-01 10:47] LABS: CKMB % Relative Index 3.3 % (1.5-5.0); Creatine Kinase MB 7.33 ng/mL (<2.37)
--- NOTE | 2022-09-01 11:06 | PC.NURSE ---
Patien't heart rate is irregular due to A.fbi. and is intermittently dropping to a low of 29BPM. Code Cart at bedside/ Dr. Chaudhry at bedside.
[2022-09-01 12:20] LABS: Creatine Kinase 220 U/L (55-170)
[2022-09-01 12:33] LABS: Troponin I 0.021 ng/mL (0.01-0.034)
[2022-09-01 12:36] LABS: CKMB % Relative Index 3.4 % (1.5-5.0); Creatine Kinase MB 7.41 ng/mL (<2.37)
[2022-09-01 13:49] LABS: COVID19 -Nasal RAPID Negative (Negative)
--- NOTE | 2022-09-01 13:53 | DI.NM.S_ITS ---
PROCEDURE: NM BORIS PERF SPECT REST & STR Rest and exercise myocardial perfusion SPECT with gated imaging and ejection fraction RADIOPHARMACEUTICAL: 25.3 mCi Tc-99m sestamibi IV at rest and 25.2 mCi Tc-99m sestamibi IV at peak exercise. A two day-protocol was performed. INDICATIONS: chest pain TECHNIQUE: Radiopharmaceutical was injected at peak stress test, and also at rest. SPECT images were obtained. SPECT myocardial perfusion images were displayed in short axis, horizontal long axis, and vertical long axis views. Gated images were reviewed using [employer] software. COMPARISON: None. CARDIAC STRESS: A standard Jaguar treadmill exercise tolerance test was performed by the patient under the supervision of an attending staff. The patient exercised for 4 minutes and 30 seconds; functional aerobic impairment (ROSE) is +12%. Hemodynamic data: There is normal blood pressure and heart rate response to exercise stress. Patient achieved 113% of maximum predicted heart rate at peak exercise. Symptoms: Patient denied chest pain during exercise. EKG: Atrial fibrillation present during the entire study. Minimal ST depressions in the inferior and anterolateral leads at rest that worsen to mild to moderate horizontal ST depressions with exercise and during recovery. FINDINGS: Raw data: There is good myocardial labeling by radiotracer. No significant motion artifacts. Dvda-dn-obnxj ratio is 0.17 (normal is less than 0.38 for sestamibi tracer, and less than 0.50 for thallium tracer). 0.92 Myocardial perfusion: There is a mildly intense fixed inferior wall defect that resolves with prone imaging, suggesting diaphragmatic attenuation artifact. No ischemia and no infarction. IMPRESSION: Low risk, normal treadmill nuclear stress test 1) No perfusion evidence of ischemia or infarction. 2) Normal left ventricular size, wall motion, and systolic function (EF post stress 71%). 3) Minimal ST depressions in the inferior and anterolateral leads at rest that worsen to mild to moderate horizontal ST depressions with exercise and during recovery. These changes are probably due to baseline ST changes and are non-diagnostic with reassuring perfusion images. 4) No angina during the study. 5) Mildly reduced exercise tolerance (7.0 METs, ROSE +12%). Target heart rate achieved. Appropriate BP response to exercise. 6) No prior nuclear stress test available for comparison. Dictated by: Tiffany Storey MD on 09/02/2022 at 13:06 Approved by: Tiffany Storey MD on 09/02/2022 at 13:10
--- NOTE | 2022-09-01 14:47 | PC.NURSE ---
Patient was brought up from ER to room 221 approximately 1350. Oriented to room and call light. DI nuc med called and states they will do resting portion of stress test today and then patient should remain without caffeine and NPO p MN for 2nd portion tomorrow. Patient placed on telemetry and per ER has had heart rates down to 20's. Patient denies lightheadedness, dizziness, shortness of breath, nausea and chest pain upon arrival.
--- NOTE | 2022-09-01 16:19 | DI.ECHO.S_ITS ---
[facility] +---------+ : : [address] [place] : : : : [id number] : : : : Phone: [phone] Echocardiogram Report + + :Name: CHIDI FRANCOIS Study Date: 09/02/2022 Height: 72 in : :[facility] ReadingLocation: Weight: 185 lb : : Gender: Male BSA: 2.1 m2 : :: 1940 Age: 81 yrs BP: 135/63 mmHg: :Reason For Study: CHEST PAIN : :Ordering Physician: TERENCE, : :GILBERT KOROMA Performed By: Vane Andrade : :Referring: GILBERT PRATT : + + Interpretation Summary The patient was in atrial fibrillation with heart rates between 42-64 bpm during the exam. The left ventricle is normal in size. The ejection fraction is estimated to be 60-65%. Diastolic function could not be accurately assessed due to atrial fibrillation. The right ventricle is mildly dilated. The left atrium is severely dilated. The right atrium is severely dilated. There is mild mitral regurgitation. The aortic valve is moderately calcified. There is mild to moderate tricuspid regurgitation. The right ventricular systolic pressure is estimated to be at least 39 mmHg based on an estimated right atrial pressure of 8 mm Hg. No prior study for comparison. Procedure: A two-dimensional transthoracic echocardiogram with color flow and Doppler was performed. The study quality was technically adequate. There is no prior echocardiogram noted for this patient. The patient was in atrial fibrillation with heart rates between 42-64 bpm during the exam. Left Ventricle: The left ventricle is normal in size. The estimated left ventricular end diastolic volume is 103 ml. There is normal left ventricular wall thickness. The ejection fraction is estimated to be 60-65%. Diastolic function could not be accurately assessed due to atrial fibrillation. Right Ventricle: The right ventricle is mildly dilated. The right ventricular systolic function is normal. Atria: The left atrium is severely dilated. The right atrium is severely dilated. There is no Doppler evidence for an interatrial shunt. Mitral Valve: The mitral valve leaflets appear mildly thickened, but open well. There is mild mitral annular calcification. There is mild mitral regurgitation. Aortic Valve: The aortic valve is trileaflet. The aortic valve is moderately calcified. There is mildly reduced leaflet mobility. The peak aortic velocity is 2.3 m/sec. The aortic valve mean gradient is 7.2 mmHg. There is trace aortic regurgitation. Tricuspid Valve: The tricuspid valve is normal in structure and function. There is mild to moderate tricuspid regurgitation. The right ventricular systolic pressure is estimated to be at least 39 mmHg based on an estimated right atrial pressure of 8 mm Hg. Pulmonic Valve: The pulmonic valve is not well seen, but is grossly normal. There is no pulmonic valvular regurgitation. Great Vessels: The aortic root is normal size. The dimensions of the ascending aorta are normal. The IVC is dilated (diameter is greater than 2.1 cm) yet it collapses greater than 50% with a sniff. This suggests a right atrial pressure of 8 mm Hg. Pericardium/ Pleura There is no pericardial effusion. There is no pleural effusion. MMode/2D Measurements & Calculations LVIDd: 5.2 cm LVOT diam: 2.0 cm LVIDs: 3.5 cm Ao root diam: 3.1 cm FS: 33.6 % asc Aorta Diam: 3.7 cm EPSS: 0.90 cm Ao Arch Diam (Prox Trans): 3.1 cm IVSd: 0.98 cm LVPWd: 1.0 cm LV king. diameter/BSA (cm/m^2): 2.5 LV sys. diameter/BSA (cm/m^2): 1.7 LA A2 area: 29.5 cm2 RA long axis: 7.3 cm LA A4 area: 36.1 cm2 RA area: 36.7 cm2 LA length (vol): 7.1 cm RA vol: 157.4 ml LA vol: 126.8 ml RA : 76.4 ml/m2 LA vol index: 61.5 ml/m2 IVC diam: 2.8 cm RVD1 (basal): 4.8 cm RVD2 (mid): 3.5 cm TAPSE: 2.7 cm Doppler Measurements & Calculations Ao V2 max: 215.7 cm/sec LVOT Max Julius: 73.1 cm/sec Ao V2 mean: 118.4 cm/sec LV V1 max P.1 mmHg Ao max P.7 mmHg LV V1 VTI: 16.7 cm Ao mean P.9 mmHg LUCERO(I,D): 1.1 cm2 Ao V2 VTI: 45.5 cm LUCERO(V,D): 1.0 cm2 sev ratio: 0.37 LUCERO indexed to BSA (cm^2/m^2): 0.55 MV E max julius: 92.1 cm/sec TR max julius: 278.1 cm/sec MV A max julius: 3.6 cm/sec TR max P.9 mmHg MV E/A: 25.8 PA V2 max: 127.1 cm/sec Med Peak E' Julius: 10.5 cm/sec PA V2 mean: 82.3 cm/sec E/E' med: 8.8 PA mean P.2 mmHg Lat Peak E' Julius: 12.4 cm/sec PA pr(Accel): 43.0 mmHg E/E' lat: 7.4 E/e' average: 8.1 MV dec time: 0.28 sec SV(LVOT): 51.2 ml Reading Physician:VERONICA
--- NOTE | 2022-09-01 16:23 | PM.HP.1 ---
History of Present Illness History of Present Illness Date Patient Seen: 09/01/22 Time Patient Seen: 16:23 Chief complaint: chest pain 3 days xtory afib Narrative: This is a 81 y/o M with PMH of chronic afib on rivaroxaban, DVT, HTN, HLD, Gout, mild aortic stenosis who presented with chest pain over the last 3 days. Patient states starting 3 days ago he noticed a sharp, substernal chest pain that occurred when he would get out of bed in the morning. It seemed to come about with movement and improve with rest. Pain would last a few seconds to a minute or two. It was not associated with jaw or neck pain, shoulder pain, abdominal pain, nausea, vomiting, lightheadedness, or diaphoresis. Breathing in would make it slightly worse, and he did not think it corresponded with positional changes. This occurred 3 days in a row in the morning and he decided to come to the emergency room. He had his COVID updated booster 1 month ago, flu shot about 3 weeks ago. He normally is in afib and bradycardic. He takes rivaroxaban for stroke prevention. He is usually able to walk at least 4 miles a day without issue, he has not exercised since this chest pain began. In the emergency room, he was mildly hypertensive and bradycardic with slow atrial fibrillation as low as into the upper 20s. He was not symptomatic in the ER, and there was no heart block observed. The remainder of his vital signs were unremarkable. Laboratory evaluation showed a mild leukopenia with WBC of 3.8, mild thrombocytopenia with platelet count of 123, mildly elevated AST and ALT. Troponin was 0.024 which improved to 0.021 on repeat. CXR was unremarkeble with no acute pulmonary disease as interpreted by me. EKG shows slow afib with possible incomplete bundle branch block. Patient History Medical History Anemia BPH w urinary obs/LUTS Chronic anticoagulation Chronic atrial fibrillation Dysphagia Essential hypertension Gait instability Gait instability Gout History of colonic polyps History of DVT (deep vein thrombosis) Mixed hyperlipidemia Pilonidal cyst Pulmonary nodule Venous insufficiency Surgical History (Updated 09/01/22 @ 16:54 by Kenny Castañeda DO) H/O Spinal surgery Family & Social History Family History Mother No problems noted. Father CVA (cerebral vascular accident) Social History: household members spouse Prior Living Arrangements Apartment/Condo Safety & Behavioral: Feels Safe in Current Yes Environment Been Physically Hurt or No Threatened By a Person Tobacco & Substance use: Smoking Status Never smoker alcohol intake never Substance Use Type does not use Meds Home Medications and Allergies Home Medications Medication Instructions Recorded Confirmed Type metoprolol succinate 25 mg 12.5 mg PO QDAY ##0 01/24/18 09/01/22 History tablet,extended release 24 hr (Toprol XL) allopurinol 100 mg tablet 100 mg PO DAILY 04/25/22 09/01/22 History compress.stocking,knee,reg,med 04/25/22 09/01/22 History (Jobst Anti-Embolism Stocking) ezetimibe 10 mg tablet 10 mg PO DAILY 04/25/22 09/01/22 History multivitamin 0.5 tab PO BID 04/25/22 09/01/22 History rivaroxaban 20 mg tablet (Xarelto) 20 mg PO DAILY 04/25/22 09/01/22 History rosuvastatin 40 mg tablet 40 mg PO DAILY Cholesterol control 06/30/22 09/01/22 History Allergies Allergy/AdvReac Type Severity Reaction Status Date / Time amoxicillin [AMOXICILLIN] Allergy Mild RASH AND Verified 06/30/22 07:54 ITCHING Review of Systems Review of Systems Narrative: All other systems reviewed with the patient and are negative unless otherwise stated. Exam Vital Signs (past 8 hours): - 09/01/22 09:47 09/01/22 10:34 09/01/22 11:00 Temperature 97.1 F L Pulse Rate 71 43 L Respiratory Rate 17 17 Blood Pressure 196/88 H 153/74 H Pulse Oximetry 99 100 Oxygen Delivery Method Room Air Oxygen Flow Rate 09/01/22 11:00 09/01/22 11:30 09/01/22 11:31 Temperature Pulse Rate 42 L 40 L 51 L Respiratory Rate 17 19 14 Blood Pressure Pulse Oximetry 93 100 100 Oxygen Delivery Method Oxygen Flow Rate 09/01/22 11:31 09/01/22 12:00 09/01/22 12:04 Temperature Pulse Rate 54 L Respiratory Rate 20 Blood Pressure 146/67 H 185/84 H Pulse Oximetry 99 Oxygen Delivery Method Oxygen Flow Rate 09/01/22 12:04 09/01/22 12:30 09/01/22 12:31 Temperature Pulse Rate 65 38 L Respiratory Rate 25 H 18 Blood Pressure 135/63 Pulse Oximetry 99 100 Oxygen Delivery Method Oxygen Flow Rate 09/01/22 12:31 09/01/22 13:53 09/01/22 15:36 Temperature 97.0 F L Pulse Rate 41 L 43 L Respiratory Rate 17 16 Blood Pressure 156/72 H Pulse Oximetry 100 100 Oxygen Delivery Method Room Air Oxygen Flow Rate 0 Oxygen Delivery Method Room Air Oxygen Flow Rate 0 Narrative Exam Narrative: General:? Patient is well developed and well nourished, in no distress at this time. He is tall and slender. HEENT:? Normocephalic, atraumatic, extraocular muscles intact, oral pharynx is clear and mucous membranes are moist. Neck: supple and symmetric, trachea is midline, no cervical adenopathy. Negative for JVD Chest:? Normal AP diameter and contour without kyphoscoliosis, no tachypnea, equal chest rise bilaterally. Lungs:? CTA b/l no wheezing rhonchi or rales. Cardio:?bradycardic with irregularly irregular rhythm. 3/6 systolic crescendo decrescendo murmur. Abdomen: S NT ND. Musculoskeletal:? Muscle strength and tone are equal within normal limits, no deformity. Extremities: No edema or joint effusions. but has compression stockings on. No cyanosis or clubbing. Skin:? Pale,? Warm to touch,dry and intact without rashes, ulcerations or petechiae.? Neuro:? Alert and orientated x3,? sensation to touch intact in all extremities, no gross deficits noted of cranial nerves. Psych:? Patient has a well-kept appearance, appropriate affect, mental status attitude thought context and judgment are appropriate for age. Objective ECG Impression: slow atrial fibrillation, with possible incomplete bundle branch block as interpreted by me. Labs Result Diagrams: 09/01/22 10:00 09/01/22 10:00 Labs: Laboratory Results - last 24 hr 09/01/22 09/01/22 09/01/22 10:00 10:00 12:08 WBC 3.8 L RBC 4.39 L Hgb 13.5 Hct 40.3 L MCV 91.7 MCH 30.6 MCHC 33.4 RDW 13.9 Plt Count 123 L Neut % (Auto) 53.9 Lymph % (Auto) 33.4 Morrill % (Auto) 10.0 Eos % (Auto) 2.1 Baso % (Auto) 0.6 Neut # (Auto) 2100 Lymph # (Auto) 1300 Morrill # (Auto) 400 Eos # (Auto) 100 Baso # (Auto) 0 Sodium 139 Potassium 4.2 Chloride 104 Carbon Dioxide 27 BUN 19 Creatinine 0.86 Estimated GFR > 60 BUN/Creatinine Ratio 22.1 H Glucose 104 Calcium 9.6 Magnesium 1.8 Total Bilirubin 0.6 AST 64 H ALT 72 H Alkaline Phosphatase 65 Total Creatine Kinase 222 H 220 H CK-MB (CK-2) 7.33 H 7.41 H CK-MB (CK-2) Rel Index 3.3 3.4 Troponin I 0.024 0.021 Total Protein 7.1 Albumin 4.5 Globulin 2.6 Albumin/Globulin Ratio 1.7 Lipase 143 SARS-CoV-2 (PCR) 09/01/22 13:19 WBC RBC Hgb Hct MCV MCH MCHC RDW Plt Count Neut % (Auto) Lymph % (Auto) Morrill % (Auto) Eos % (Auto) Baso % (Auto) Neut # (Auto) Lymph # (Auto) Morrill # (Auto) Eos # (Auto) Baso # (Auto) Sodium Potassium Chloride Carbon Dioxide BUN Creatinine Estimated GFR BUN/Creatinine Ratio Glucose Calcium Magnesium Total Bilirubin AST ALT Alkaline Phosphatase Total Creatine Kinase CK-MB (CK-2) CK-MB (CK-2) Rel Index Troponin I Total Protein Albumin Globulin Albumin/Globulin Ratio Lipase SARS-CoV-2 (PCR) Negative Assessment & Plan Assessment & Plan narrative: 1. Chest pain - HEART score of 4-5, intermediate risk. Will repeat another 8 hour troponin for ACS rule out though symptoms have been present for 3 days. - will risk stratify further with cardiac stress testing. - given recent COVID vaccines, and history of , will order TTE to rule out pericarditis or worsening valvular disease. - may be symptomatic bradycardia as well, will hold beta carolin and continue telemetry monitoring. 2. HTN - hold home beta carolin. Will likely need another antihypertensive but will observe. 3. HLD - replace home rosuvastatin with formulary atorvastatin for now. - hold ezetimibe given LFT elevations. 4. Chronic, presumed permanent afib with bradycardia, slow ventricular response, with chronic anticoagulation - continue telemetry, HR as low as upper 20s but asmptomatic. - hold home beta carolin given degree of bradycardia as discussed above. 5. Gout - continue home allopurinol 6. Transaminitis - unclear cause at this time. No abdominal symptoms currently or recently. May be medication related. Will hold home ezetimibe for now. Continue to trend. Code: full, surrogate decision maker is patient's spouse DVT: on chronic AC Dispo: Admitted under observation status, pending stress testing. I have utilized all available immediate resources to obtain, update, or review the patient's current medications. COVID-19 COVID-19 status: Negative Time Spent With Patient Critical Care time: I spent a total of [] minutes of critical care time on this patient's care today; this time is exclusive of procedural time.
[2022-09-01 18:27] LABS: Troponin I 0.021 ng/mL (0.01-0.034)
--- NOTE | 2022-09-01 19:37 | PC.NURSE ---
Patient is alert and oriented. Breath sounds CTA with RA sat of 99%. HR irregular and bradycardic w/telemetry reading of afib SVR with rate of 43; denies chest pain. Denies nausea. BT present and reports having had BM earlier today. Denies dysuria, frequency or urgency but states he does have nocturia but no retention per his urologist. Moves self in bed and provided SBA when out of bed for safety as has chronic numbness in bilateral feet and right foot drop. Denies pain. Fall risk score is high but patient calls appropriately for assistance so alarm is not being used. Is aware he will be NPO after 0000 for stress test in a.m.
[2022-09-01] MEDS: ATORVASTATIN 20 MG TABLET 40 MG PO (20:17)
[2022-09-01] MEDS: SODIUM CHLORIDE 0.9% FLUSH 10 ML IV (20:17)
[2022-09-02] VITALS: BP 109/53; PULSE 46; RESP 18; TEMP 36.4; O2SAT 98
[2022-09-02 04:00] VITALS: BP 103/55; PULSE 51; RESP 17; TEMP 36.1; O2SAT 95
[2022-09-02 06:49] LABS: Add Manual Diff / Slide Review NO; Basophils Absolute Auto 0 /uL (0-100); Basophils Percent Auto 0.5 % (0-2); Eosinophils Absolute Auto 100 /uL (0-450); Eosinophils Percent Auto 3.3 % (2-4); Hematocrit 36.7 % (41-53); Hemoglobin 12.7 g/dL (13.5-17.5); Lymphocytes Absolute Auto 1300 /uL (1100-4500); Lymphocytes Percent Auto 34.7 % (25-40); Mean Corpuscular HGB Conc 34.6 % (30-36); Mean Corpuscular Hemoglobin 31.2 PG (26-34); Mean Corpuscular Volume 90.1 fL (80-100); Monocytes Absolute Auto 300 /uL (0-900); Monocytes Percent Auto 7.9 % (3-14); Neutrophils Absolute Auto 2000 /uL (1500-7000); Neutrophils Percent Auto 53.6 % (50-75); Platelet Count 114 X10^3/uL (150-400); Red Blood Cell Count 4.07 X10^6/uL (4.5-5.9); Red Cell Distribution Width 13.9 % (11.6-14.8); White Blood Cell Count 3.8 X10^3/uL (4.5-11.0)
[2022-09-02 06:57] LABS: Alanine Aminotransferase 54 IU/L (<50); Albumin 3.8 g/dL (3.5-5.0); Albumin Globulin Ratio 1.7 (1.0-2.8); Alkaline Phosphatase 58 U/L (38-126); Aspartate Aminotransferase 47 IU/L (17-59); Bilirubin Total 0.5 mg/dL (0.2-1.3); Bilirubin Unconjugated 0.4 mg/dL (0.0-1.1); Globulin 2.2 g/dL (1.7-4.1); HEMOLYSIS < 15 (0-50)
[2022-09-02 06:58] LABS: BUN Creatinine Ratio 22.7 (6-22); Blood Urea Nitrogen 20 mg/dL (9-20); Calcium 9.1 mg/dL (8.4-10.2); Carbon Dioxide 26 mmol/L (22-32); Chloride 108 mmol/L (98-107); Cholesterol 111 mg/dL (140-199); Estimated Glomerular Filt Rate > 60 mL/min (>60); Glucose 93 mg/dL (80-110); HDL Cholesterol 61 mg/dL (40-60); HEMOLYSIS < 15 (0-50); LDL Cholesterol Calculated 39 mg/dL (<100); Magnesium 1.8 mg/dL (1.6-2.3); Potassium 4.1 mmol/L (3.4-5.1); Sodium 140 mmol/L (137-145); Triglycerides 55 mg/dL (35-150)
[2022-09-02 07:03] LABS: Hemoglobin A1C% w Est Avg Glu 5.9 % (4.0-6.0)
[2022-09-02 07:23] LABS: TSH w/ Reflex to FT4 1.64 uIU/mL (0.47-4.68)
[2022-09-02] MEDS: SODIUM CHLORIDE 0.9% FLUSH 10 ML IV (08:23)
[2022-09-02 08:35] VITALS: BP 120/60; PULSE 53; RESP 18; TEMP 36.4; O2SAT 96
--- NOTE | 2022-09-02 11:33 | CM.DANOTE ---
Initial DCP Assessment Note Pt is a 81 yo male, resident [facility], arrives w/persistent chest pain and admitted observation chest pain r/o, stress test PCP: Yunier Rivas Payer: MILAGROS/Maria Fernanda Reviewed chart, pt discussed in multidisciplinary rounds this morning. Patient is scheduled for the second half of his stress test then will likely be discharged back home w/ recommendation for close outpatient follow up Patient indp and active at baseline and eager to return home to the care of his spouse No barriers identified at this time to patient's safe discharge home w/family to assist; close outpatient f/u recommended. RAFA Romeo Discharge Planning/Care Management CM Discharge Assessment Start: 09/02/22 11:28 Freq: Status: Active Protocol: Document 09/02/22 11:28 FREDERICK (Rec: 09/02/22 11:33 FREDERICK [id number]) Discharge Planning Assessment Assigned [place] RAFA Carl DPOA/Assigned Designee Name Ciara Herrera, spouse Contact Information [phone] Advance Directives? Yes Advance Directives on File No History Provided By Patient Prior Living Arrangements Apartment/Condo Household Members spouse Type of transporation used prior to Drives own vehicle admit Independent with ADL's Yes Is patient alert and oriented? Yes Barriers to Discharge No Comment Likely Home w/spouse after second part of stress test Discharge Plan Home Transportation Arrangement Spouse Referrals Initiated None needed
--- NOTE | 2022-09-02 13:11 | PM.DS.1 ---
History of Present Illness History of Present Illness Date Patient Seen: 09/02/22 Chief complaint: chest pain 3 days xtory afib Narrative: This is a 81 y/o M with PMH of chronic afib on rivaroxaban, DVT, HTN, HLD, Gout, mild aortic stenosis who presented with chest pain over the last 3 days. Patient states starting 3 days ago he noticed a sharp, substernal chest pain that occurred when he would get out of bed in the morning. It seemed to come about with movement and improve with rest. Pain would last a few seconds to a minute or two. It was not associated with jaw or neck pain, shoulder pain, abdominal pain, nausea, vomiting, lightheadedness, or diaphoresis. Breathing in would make it slightly worse, and he did not think it corresponded with positional changes. This occurred 3 days in a row in the morning and he decided to come to the emergency room. He had his COVID updated booster 1 month ago, flu shot about 3 weeks ago. He normally is in afib and bradycardic. He takes rivaroxaban for stroke prevention. He is usually able to walk at least 4 miles a day without issue, he has not exercised since this chest pain began. In the emergency room, he was mildly hypertensive and bradycardic with slow atrial fibrillation as low as into the upper 20s. He was not symptomatic in the ER, and there was no heart block observed. The remainder of his vital signs were unremarkable. Laboratory evaluation showed a mild leukopenia with WBC of 3.8, mild thrombocytopenia with platelet count of 123, mildly elevated AST and ALT. Troponin was 0.024 which improved to 0.021 on repeat. CXR was unremarkeble with no acute pulmonary disease as interpreted by me. EKG shows slow afib with possible incomplete bundle branch block. Discharge Providers Provider Date of admission: 09/01/22 12:59 Discharge Date: 09/02/22 Primary care physician: Yunier Rivas MD Discharge provider: Kenny Castañeda DO Summary Hospital Course Discharge Diagnosis: 1. Chest pain 2. HTN 3. HLD 4. Chronic, presumed permanent afib with bradycardia, slow ventricular response, with chronic anticoagulation 5. Gout 6. Transaminitis Hospital Course: This is a 81 year old male with PMH of HTN,HLD, chronic afib with slow ventricular response on AC who presented with multiple days of chest pain in the mornings. He was noted to have a slow heart rate, beta carolin therapy was held and patient underwent nuclear stress testing which was deemed low risk. He had no chest discomfort with exercise and symptoms did not recur. It is possible this was due to his bradycardia, which improved with cessation of his home metoprolol. Echocardiogram was performed which showed a normal EF, no evidence of pericarditis or significant valvular disease. He was discharged home. Recommend PCP and cardiology follow up as an outpatient if symptoms recur and to review medication change. Exam Vital Signs (past 8 hours): - 09/02/22 08:35 Temperature 97.6 F Pulse Rate 53 L Respiratory Rate 18 Blood Pressure 120/60 Pulse Oximetry 96 Oxygen Flow Rate 0 Oxygen Delivery Method Room Air Oxygen Flow Rate 0 Narrative Exam Narrative: General:? Patient is well developed and well nourished, in no distress at this time. He is tall and slender. HEENT:? Normocephalic, atraumatic, extraocular muscles intact, oral pharynx is clear and mucous membranes are moist. Neck: supple and symmetric, trachea is midline, no cervical adenopathy. Negative for JVD Chest:? Normal AP diameter and contour without kyphoscoliosis, no tachypnea, equal chest rise bilaterally. Lungs:? CTA b/l no wheezing rhonchi or rales. Cardio:?bradycardic with irregularly irregular rhythm. 3/6 systolic crescendo decrescendo murmur. Abdomen: S NT ND. Musculoskeletal:? Muscle strength and tone are equal within normal limits, no deformity. Extremities: No edema or joint effusions. but has compression stockings on. No cyanosis or clubbing. Skin:? Pale,? Warm to touch,dry and intact without rashes, ulcerations or petechiae.? Neuro:? Alert and orientated x3,? sensation to touch intact in all extremities, no gross deficits noted of cranial nerves. Psych:? Patient has a well-kept appearance, appropriate affect, mental status attitude thought context and judgment are appropriate for age. Objective Labs Result Diagrams: 09/02/22 06:00 09/02/22 06:00 Labs: Laboratory Results - last 24 hr 09/01/22 09/01/22 09/02/22 13:19 17:53 06:00 WBC RBC Hgb Hct MCV MCH MCHC RDW Plt Count Neut % (Auto) Lymph % (Auto) Ogle % (Auto) Eos % (Auto) Baso % (Auto) Neut # (Auto) Lymph # (Auto) Ogle # (Auto) Eos # (Auto) Baso # (Auto) Sodium Potassium Chloride Carbon Dioxide BUN Creatinine Estimated GFR BUN/Creatinine Ratio Glucose Hemoglobin A1c Calcium Magnesium Total Bilirubin 0.5 Conjugated Bilirubin 0.0 Unconjugated Bilirubin 0.4 AST 47 ALT 54 H Alkaline Phosphatase 58 Troponin I 0.021 Total Protein 6.0 L Albumin 3.8 Globulin 2.2 Albumin/Globulin Ratio 1.7 Triglycerides Cholesterol LDL Cholesterol, Calc HDL Cholesterol TSH SARS-CoV-2 (PCR) Negative 09/02/22 09/02/22 09/02/22 06:00 06:00 06:00 WBC 3.8 L RBC 4.07 L Hgb 12.7 L Hct 36.7 L MCV 90.1 MCH 31.2 MCHC 34.6 RDW 13.9 Plt Count 114 L Neut % (Auto) 53.6 Lymph % (Auto) 34.7 Ogle % (Auto) 7.9 Eos % (Auto) 3.3 Baso % (Auto) 0.5 Neut # (Auto) 2000 Lymph # (Auto) 1300 Ogle # (Auto) 300 Eos # (Auto) 100 Baso # (Auto) 0 Sodium 140 Potassium 4.1 Chloride 108 H Carbon Dioxide 26 BUN 20 Creatinine 0.88 Estimated GFR > 60 BUN/Creatinine Ratio 22.7 H Glucose 93 Hemoglobin A1c 5.9 Calcium 9.1 Magnesium 1.8 Total Bilirubin Conjugated Bilirubin Unconjugated Bilirubin AST ALT Alkaline Phosphatase Troponin I Total Protein Albumin Globulin Albumin/Globulin Ratio Triglycerides 55 Cholesterol 111 L LDL Cholesterol, Calc 39 HDL Cholesterol 61 H TSH SARS-CoV-2 (PCR) 09/02/22 06:00 WBC RBC Hgb Hct MCV MCH MCHC RDW Plt Count Neut % (Auto) Lymph % (Auto) Ogle % (Auto) Eos % (Auto) Baso % (Auto) Neut # (Auto) Lymph # (Auto) Ogle # (Auto) Eos # (Auto) Baso # (Auto) Sodium Potassium Chloride Carbon Dioxide BUN Creatinine Estimated GFR BUN/Creatinine Ratio Glucose Hemoglobin A1c Calcium Magnesium Total Bilirubin Conjugated Bilirubin Unconjugated Bilirubin AST ALT Alkaline Phosphatase Troponin I Total Protein Albumin Globulin Albumin/Globulin Ratio Triglycerides Cholesterol LDL Cholesterol, Calc HDL Cholesterol TSH 1.64 SARS-CoV-2 (PCR) [facility] Medical History Anemia BPH w urinary obs/LUTS Chronic anticoagulation Chronic atrial fibrillation Dysphagia Essential hypertension Gait instability Gait instability Gout History of colonic polyps History of DVT (deep vein thrombosis) Mixed hyperlipidemia Pilonidal cyst Pulmonary nodule Venous insufficiency Surgical History (Updated 09/01/22 @ 16:54 by Kenny Castañeda DO) H/O Spinal surgery Family History Mother No problems noted. Father CVA (cerebral vascular accident) Social History household members: spouse Smoking Status: Never smoker alcohol intake: never Discharge Plan Discharge Plan Patient Disposition: Home Provider Discharge Comment: You were admitted to the hospital for further evaluation of chest pain. Your heart rate was slow, beta carolin therapy was held. Stress testing was normal. Please follow up with Dr. Rivas if symptoms continue for further evaluation and continue to seek referral to cardiology at [facility]. No other medication changes are recommended. Discharge orders & Medications Prescriptions: Continued rosuvastatin 40 mg tablet 40 mg PO DAILY ezetimibe 10 mg tablet 10 mg PO DAILY Label Comments: TAKE 1 TABLET BY MOUTH DAILY. GENERIC EQUIVALENT FOR ZETIA Xarelto 20 mg tablet 20 mg PO DAILY Label Comments: TAKE 1 TABLET BY MOUTH EVERY DAY NEEDED allopurinol 100 mg tablet 100 mg PO DAILY multivitamin Tablet 0.5 tab PO BID (DME) Jobst Anti-Embolism Stocking Misc See Rx Instructions .Route Rx Instructions: Jobst support socks, knee high, open toe, 30-40 mmHg Discontinued metoprolol succinate [Toprol XL] 25 MG tablet extended release 24 hr 12.5 mg PO QDAY Qty: 0 Follow up/Referrals: Yunier Rivas MD [Primary Care Provider] - Diet/Activity/Treatments Diet: Diet as Tolerated Activity: As tolerated Visit Report/Discharge Packet Instructions: DI for Bradycardia Discharge Data Primary Care Provider: Yunier Rivas V Attending Provider: Kenny Castañeda
--- NOTE | 2022-09-02 14:52 | PC.NURSE ---
Discharge Note Patient A&O, VSS, RA. No complaints of pain/discomfort. Discharge packet reviewed with patient, all questions/concerns addressed. PIV/TELE discontinued. Patient able to dress self and pack all belongings. Patient taken down via wheelchair to POV.
== END 2022-09-02 14:00 | disposition home or self-care (01) ==
LOC: ED 12:59 → AC 13:00
PROVIDERS: Admitting Provider Internal Medicine; Emergency Provider Emergency Medicine; Family Provider Internal Medicine; PCP Internal Medicine; Referring Provider Emergency Medicine; Visit Provider Internal Medicine
DX: R07.9 Chest pain, unspecified (principal); R74.01 Elevation of levels of liver transaminase levels; I48.20 Chronic atrial fibrillation, unspecified; I10 Essential (primary) hypertension; E78.5 Hyperlipidemia, unspecified; M10.9 Gout, unspecified; Z79.01 Long term (current) use of anticoagulants; Z20.822 Contact with and (suspected) exposure to COVID-19
CPT/HCPCS: 36415; 71045; 78452; 80048; 80053; 80061; 80076; 82550; 82553; 83036; 83690; 83735; 84443; 84484; 85025; 87635; 93005; 93017; 93306; 99284; C9803; G0378; A9502

== ENCOUNTER → 2022-09-08 10:44 | Outpatient (CLI) | payer MEDICARE, BC, SELFPAY ==
[2022-09-01 14:18] VITALS: BMI 25.0
--- NOTE | 2022-09-08 10:45 | DI.CT.S_ITS ---
PROCEDURE: CT CHEST WO CON INDICATIONS: followup pulmonary nodule TECHNIQUE: Noncontrast 2.0-2.5 mm thick sections acquired from the pulmonary apices to the posterior costophrenic angles. 7 mm thick axial MIP and 5 mm coronal and sagittal reformats were then acquired. A low radiation dose technique was utilized. COMPARISON: [facility], CT, CT CHEST ABD PEL WO CON, 06/08/2022, 10:39. FINDINGS: Image quality: Diagnostic, given the low radiation dose technique. Lungs and pleura: There are multiple lung nodules, unchanged in size. Nodule 1: 1.1 x 1.5 cm; right lower lobe; series 3, image 204; lobulated, ground-glass. Nodule 2: 0.2 cm; right lower lobe; series 3, image 149; solid. Nodule 3: 0.2 cm; right lower lobe; series 3, image 146; solid. Nodule 4: 0.3 x 1.0 cm; right middle lobe; series 3, image 247; subsolid. Mediastinum: Heart size is normal. Moderate coronary artery calcification. No pericardial effusion. No mediastinal adenopathy by size criteria. Thoracic aorta and central pulmonary arteries are normal in size. Esophagus is normal in caliber. Small hiatal hernia. Bones and chest wall: No suspicious bony lesions. No vertebral body compression fractures. Holding right 10th and 11th rib fractureas with callus formation No axillary or supraclavicular adenopathy by size criteria. Thyroid gland is normal. Abdomen: Is right adrenal calcification. Mild bilateral adrenal thickening.. IMPRESSION: 1. Stable pulmonary nodules. The 1.1 x 1.5 cm lobulated, ground-glass nodule in the right lower lobe is suspicious and could represent an adenocarcinoma in-situ. If clinically indicated, PET-CT may be helpful. Alternatively, continued CT follow-up. 2. Healing right 10th and 11th rib fractures. Fleischner Society criteria for SUB-SOLID lung nodule followup. Solitary pure ground-glass nodules<6 mm (ground glass or part solid)No followup needed. 6 mm or larger (ground glass)CT at 6-12 months to confirm persistence, then CT every 2 years until 5 years.6 mm or larger (part solid)CT at 3-6 months to confirm persistence, then annual CT until 5 years if unchanged and solid component remains <6 mm. Multiple sub-solid nodules<6 mmCT at 3-6 months, then CT consider at 2 & 4 years for high risk patients. [address] at 3-6 months. Subsequent management based on most suspicious lesions. Recommendations do not apply to lung cancer screening, patients with immunosuppression, or patients with known primary cancer. Dictated by: Narayan Pruitt M.D. on 09/08/2022 at 13:37 Approved by: Narayan Pruitt M.D. on 09/08/2022 at 13:54
== END ==
PROVIDERS: Family Provider Internal Medicine; PCP Internal Medicine; Referring Provider Internal Medicine; Visit Provider Internal Medicine
DX: R91.8 Other nonspecific abnormal finding of lung field (principal); S22.41XD Multiple fractures of ribs, right side, subsequent encounter for fracture with routine healing
CPT/HCPCS: 71250

== ENCOUNTER → 2023-08-12 16:54 | Outpatient (CLI) | payer MEDICARE, BC, SELFPAY ==
[2022-09-01 14:18] VITALS: BMI 25.0
[2023-08-12 18:02] LABS: Hematocrit 36.9 % (41-53); Hemoglobin 12.7 g/dL (13.5-17.5); Mean Corpuscular HGB Conc 34.4 % (30-36); Mean Corpuscular Hemoglobin 31.1 PG (26-34); Mean Corpuscular Volume 90.4 fL (80-100); Platelet Count 182 X10^3/uL (150-400); Red Blood Cell Count 4.08 X10^6/uL (4.5-5.9); Red Cell Distribution Width 14.2 % (11.6-14.8); White Blood Cell Count 4.7 X10^3/uL (4.5-11.0)
[2023-08-12 18:21] LABS: Alanine Aminotransferase 47 IU/L (<50); Albumin 4.3 g/dL (3.5-5.0); Albumin Globulin Ratio 1.6 (1.0-2.8); Alkaline Phosphatase 48 U/L (38-126); Aspartate Aminotransferase 53 IU/L (17-59); BUN Creatinine Ratio 22.6 (6-22); Bilirubin Total 0.4 mg/dL (0.2-1.3); Blood Urea Nitrogen 21 mg/dL (9-20); Calcium 9.7 mg/dL (8.4-10.2); Carbon Dioxide 27 mmol/L (22-32); Chloride 105 mmol/L (98-107); Estimated Glomerular Filt Rate > 60 mL/min (>60); Globulin 2.7 g/dL (1.7-4.1); Glucose 101 mg/dL (80-110); HEMOLYSIS 17 (0-50); Potassium 4.6 mmol/L (3.4-5.1); Sodium 142 mmol/L (137-145)
== END ==
PROVIDERS: Family Provider Internal Medicine; PCP Internal Medicine; Referring Provider Internal Medicine; Visit Provider Internal Medicine
DX: R42 Dizziness and giddiness (principal)
CPT/HCPCS: 36415; 80053; 85027

== ENCOUNTER → 2023-10-02 09:51 | Outpatient (CLI) | payer MEDICARE, BC, SELFPAY ==
[2022-09-01 14:18] VITALS: BMI 25.0
--- NOTE | 2023-10-02 09:52 | DI.CT.S_ITS ---
PROCEDURE: CT CHEST WO CON INDICATIONS: follow-up pulmonary nodule TECHNIQUE: Noncontrast 5 mm thick sections acquired from the pulmonary apices to the posterior costophrenic angles. 1 mm lung window, 5 mm thick coronal and sagittal and 7 mm axial MIP reformats were then acquired. For radiation dose reduction, the following was used: automated exposure control, adjustment of mA and/or kV according to patient size. COMPARISON: [facility], CT, CT CHEST WO CON, 09/08/2022, 10:52. FINDINGS: Cardiovascular and Mediastinum: Heart size is normal. No evidence of thoracic aortic aneurysm. Pulmonary vasculature is unremarkable. No hiatal hernia. Thyroid gland unremarkable. Left-sided single lead pacer is new from the prior. Atherosclerotic vascular calcification noted in the aortic arch. Dense coronary artery vascular calcification Lungs and Pleural Spaces: Right lower lobe ground-glass nodule now measures 1.2 x 1.7 cm, previously 1.1 x 0.4 cm. Additional stable nodules include right middle lobe 0.3 x 1.0 cm subsolid nodule on image 3/102, right lower lobe 2 mm nodules on image 3/136 and 3/132 Lymph Nodes: No mediastinal, hilar or axillary adenopathy. Musculoskeletal: Healed right 10th 11th rib fractures. Degenerative changes in the lumbar spine. Old T3 and T7 wedge-shaped compression fractures, stable from the prior exam. No lytic or blastic lesion. Upper abdomen: Visualized portions of the liver, spleen and kidneys are unremarkable. Stable bilateral adrenal thickening and right-sided calcification IMPRESSION: 1. Interval enlargement of right lower lobe ground-glass nodule. Advise follow-up PET-CT 2. Stability of additional nodules detailed above Approved by: Morro Somers M.D. on 10/02/2023 at 12:23
== END ==
PROVIDERS: Family Provider Internal Medicine; PCP Internal Medicine; Referring Provider Internal Medicine; Visit Provider Internal Medicine
DX: R91.8 Other nonspecific abnormal finding of lung field (principal); I25.10 Atherosclerotic heart disease of native coronary artery without angina pectoris; I70.0 Atherosclerosis of aorta
CPT/HCPCS: 71250

== ENCOUNTER → 2023-10-20 10:21 | Outpatient (CLI) | payer MEDICARE, BC, SELFPAY ==
[2022-09-01 14:18] VITALS: BMI 25.0
[2023-10-20 11:31] LABS: Add Manual Diff / Slide Review NO; Basophils Absolute Auto 0 /uL (0-100); Basophils Percent Auto 0.6 % (0-2); Eosinophils Absolute Auto 100 /uL (0-450); Eosinophils Percent Auto 2.4 % (2-4); Hemoglobin 11.6 g/dL (13.5-17.5); Lymphocytes Absolute Auto 900 /uL (1100-4500); Lymphocytes Percent Auto 20.1 % (25-40); Mean Corpuscular HGB Conc 34.2 % (30-36); Mean Corpuscular Hemoglobin 31.2 PG (26-34); Mean Corpuscular Volume 91.2 fL (80-100); Monocytes Absolute Auto 300 /uL (0-900); Monocytes Percent Auto 7.4 % (3-14); Neutrophils Absolute Auto 3100 /uL (1500-7000); Neutrophils Percent Auto 69.5 % (50-75); Platelet Count 134 X10^3/uL (150-400); Red Blood Cell Count 3.73 X10^6/uL (4.5-5.9); Red Cell Distribution Width 14.4 % (11.6-14.8); White Blood Cell Count 4.4 X10^3/uL (4.5-11.0)
[2023-10-20 11:40] LABS: Alanine Aminotransferase 48 IU/L (<50); Albumin 4.2 g/dL (3.5-5.0); Albumin Globulin Ratio 1.8 (1.0-2.8); Alkaline Phosphatase 50 U/L (38-126); Aspartate Aminotransferase 43 IU/L (17-59); BUN Creatinine Ratio 24.4 (6-22); Bilirubin Total 0.8 mg/dL (0.2-1.3); Blood Urea Nitrogen 22 mg/dL (9-20); Calcium 9.9 mg/dL (8.4-10.2); Carbon Dioxide 29 mmol/L (22-32); Chloride 104 mmol/L (98-107); Estimated Glomerular Filt Rate > 60 mL/min (>60); Globulin 2.4 g/dL (1.7-4.1); Glucose 106 mg/dL (80-110); HEMOLYSIS < 15 (0-50); Lactate Dehydrogenase 221 U/L (120-246); Potassium 4.7 mmol/L (3.4-5.1); Sodium 136 mmol/L (137-145); Total Protein 6.6 g/dL (6.3-8.2)
[2023-10-20 12:44] LABS: Folate > 20.0 ng/mL (2.76-20.0); Vitamin B12 491 pg/mL (239-931)
[2023-10-22 05:46] LABS: Methylmalonic Acid,Serum 159 nmol/L (0-378)
[2023-10-22 14:53] LABS: Beta-2-Microglobulin 1.8 mg/L (0.6-2.4)
== END ==
PROVIDERS: Family Provider Internal Medicine; PCP Internal Medicine; Referring Provider Internal Medicine Hematology & Oncology; Visit Provider Internal Medicine Hematology & Oncology
DX: D64.9 Anemia, unspecified (principal)
CPT/HCPCS: 36415; 80053; 82232; 82607; 82746; 83615; 83921; 85025

== ENCOUNTER → 2024-01-20 10:05 | Outpatient (CLI) | payer MEDICARE, OTHER, SELFPAY ==
[2022-09-01 14:18] VITALS: BMI 25.0
[2024-01-20 10:56] LABS: Hematocrit 36.6 % (41-53); Hemoglobin 12.4 g/dL (13.5-17.5); Mean Corpuscular HGB Conc 33.9 % (30-36); Mean Corpuscular Hemoglobin 30.4 PG (26-34); Mean Corpuscular Volume 89.5 fL (80-100); Platelet Count 154 X10^3/uL (150-400); Red Blood Cell Count 4.09 X10^6/uL (4.5-5.9); White Blood Cell Count 4.6 X10^3/uL (4.5-11.0)
[2024-01-20 11:17] LABS: Alanine Aminotransferase 41 IU/L (<50); Albumin 4.5 g/dL (3.5-5.0); Albumin Globulin Ratio 1.9 (1.0-2.8); Alkaline Phosphatase 57 U/L (38-126); Aspartate Aminotransferase 56 IU/L (17-59); BUN Creatinine Ratio 24.8 (6-22); Bilirubin Total 0.7 mg/dL (0.2-1.3); Blood Urea Nitrogen 27 mg/dL (9-20); Calcium 9.7 mg/dL (8.4-10.2); Carbon Dioxide 28 mmol/L (22-32); Chloride 106 mmol/L (98-107); Cholesterol 122 mg/dL (140-199); Estimated Glomerular Filt Rate > 60 mL/min (>60); Globulin 2.4 g/dL (1.7-4.1); Glucose 87 mg/dL (80-110); HDL Cholesterol 81 mg/dL (40-60); HEMOLYSIS < 15 (0-50); LDL Cholesterol Calculated 28 mg/dL (<100); Sodium 138 mmol/L (137-145); Total Protein 6.9 g/dL (6.3-8.2); Triglycerides 63 mg/dL (35-150)
[2024-01-20 11:50] LABS: Prostate Specific Antigen 1.77 ng/mL (0.10-4.00)
[2024-01-20 12:09] LABS: Vitamin B12 541 pg/mL (239-931)
== END ==
LOC: LAB 10:07
PROVIDERS: Family Provider Internal Medicine; PCP Internal Medicine; Referring Provider Internal Medicine; Visit Provider Internal Medicine
DX: I48.20 Chronic atrial fibrillation, unspecified (principal); E78.2 Mixed hyperlipidemia; N40.1 Benign prostatic hyperplasia with lower urinary tract symptoms; N13.8 Other obstructive and reflux uropathy; E07.9 Disorder of thyroid, unspecified; E53.8 Deficiency of other specified B group vitamins
CPT/HCPCS: 36415; 80053; 80061; 82607; 84153; 84443; 85027

== ENCOUNTER → 2024-01-21 11:34 | Outpatient (CLI) | payer MEDICARE, OTHER, SELFPAY ==
[2022-09-01 14:18] VITALS: BMI 25.0
--- NOTE | 2024-01-21 11:36 | DI.CT.S_ITS ---
PROCEDURE: CT HEAD/BRAIN WO CON INDICATIONS: cognitive impairment TECHNIQUE: Noncontrast 4.5 mm thick angled axial sections acquired from the foramen magnum to the vertex, with coronal and sagittal reformats. For radiation dose reduction, the following was used: automated exposure control, adjustment of mA and/or kV according to patient size. COMPARISON: [facility], CT, CT HEAD/BRAIN WO CON, 06/08/2022, 10:34. FINDINGS: Image quality: Diagnostic. CSF spaces: Basal cisterns are patent. No extra-axial fluid collections. Ventricles are normal in size and shape. Brain: No midline shift. No intracranial masses or hemorrhage. Garcia-white matter interface is normal. Moderate cerebral and cerebellar volume loss with multifocal white matter chronic ischemic change noted. Atherosclerotic calcification noted associated with cavernous segments of both internal carotid arteries. Skull and face: Calvarium and visualized facial bones are intact, without suspicious lesions. Sinuses: Visualized sinuses and mastoids are clear. IMPRESSION: Atrophy and chronic ischemic change without intracranial hemorrhage or mass effect Approved by: Morro Somers M.D. on 01/21/2024 at 17:18
== END ==
LOC: CT 11:35
PROVIDERS: Family Provider Internal Medicine; PCP Internal Medicine; Referring Provider Internal Medicine; Visit Provider Internal Medicine
DX: R41.0 Disorientation, unspecified (principal); G31.84 Mild cognitive impairment of uncertain or unknown etiology; I67.9 Cerebrovascular disease, unspecified
CPT/HCPCS: 70450

== ENCOUNTER 2024-02-04 09:34 | Emergency (ER) | payer MEDICARE, OTHER, SELFPAY ==
[2022-09-01 14:18] VITALS: BMI 25.0
[2024-02-04 09:36] VITALS: BP 158/73; PULSE 78; RESP 15; TEMP 35.7; O2SAT 99; BMI 24.4
--- NOTE | 2024-02-04 09:40 | DI.RAD.S_ITS ---
PROCEDURE: XR ANKLE RT MIN 3V INDICATIONS: pain after injury TECHNIQUE: 3 views of the ankle were acquired. COMPARISON: None. FINDINGS: Bones: 5th metatarsal base fracture. No fractures about the ankle. Soft tissues: Moderate tibiotalar joint effusion. Achilles tendon appears normal. Fat stranding within the Kager's fat pad. IMPRESSION: No fractures about the ankle. Fat stranding within Kager's fat pad, which may indicate Achilles tendon injury. Dictated by: Manny Jeffers M.D. on 02/04/2024 at 10:51 Approved by: Manny Jeffers M.D. on 02/04/2024 at 10:51
--- NOTE | 2024-02-04 09:50 | DI.RAD.S_ITS ---
PROCEDURE: XR FOOT RT MIN 3V INDICATIONS: foot pain after fall TECHNIQUE: 3 views of the foot were acquired. COMPARISON: None. FINDINGS: Bones: Mildly displaced, comminuted fracture of the 5th metatarsal base, with intra-articular extension. No major cortical step-off. Calcaneal enthesophytes. Soft tissues: No tibiotalar joint effusion. Achilles tendon appears normal. IMPRESSION: Comminuted, minimally displaced, intra-articular 5th metatarsal base fracture. Dictated by: Manny Jeffers M.D. on 02/04/2024 at 10:47 Approved by: Manny Jeffers M.D. on 02/04/2024 at 10:50
--- NOTE | 2024-02-04 10:37 | ED_ITS ---
HPI - Extremity Injury (Lower) General Chief Complaint: Extremity Injury, Lower Stated Complaint: poss sprained rt ankle Time Seen by Provider: 02/04/24 09:40 Source: patient Mode of arrival: Ambulatory History of Present Illness HPI Narrative: Patient is an 83-year-old male who last evening stepped wrong with his right foot that since that time has had pain on the outside of his right foot. He still has been ambulatory but it does hurt for him to walk. He states he does have a ?drop toe? on the right and he does catch it every now and then which causes him some problems with walking otherwise he ambulates without difficulty. Reports no other injuries from the event. Related Data Home Medications Medication Instructions Recorded Confirmed multivitamin 0.5 tab PO BID 04/25/22 01/20/24 Previous Rx's Medication Instructions Recorded compress.stocking,knee,reg,med #2 ea 11/06/22 (Jobst Anti-Embolism Stocking) ezetimibe 10 mg tablet 10 mg PO DAILY #90 tabs 10/30/23 metoprolol succinate 25 mg 12.5 mg (1/2 x 25 mg) PO DAILY #45 10/30/23 tablet,extended release 24 hr tabs rivaroxaban 20 mg tablet (Xarelto) 20 mg PO DAILY #90 tabs 10/30/23 rosuvastatin 40 mg tablet 40 mg PO DAILY Cholesterol control 10/30/23 #90 tabs donepezil 5 mg tablet 5 mg PO BEDTIME #30 tabs 01/20/24 Allergies Allergy/AdvReac Type Severity Reaction Status Date / Time amoxicillin [AMOXICILLIN] Allergy Mild RASH AND Verified 02/04/24 09:41 ITCHING Review of Systems Constitutional Constitutional: Reports system reviewed and no additional complaints, except as documented Musculoskeletal Musculoskeletal: Reports system reviewed and no additional complaints, except as documented Integumentary/Breasts Skin/Breast: Reports system reviewed and no additional complaints, except as documented Neurologic Neurologic: Reports system reviewed and no additional complaints, except as documented Patient History Medical History Mild cognitive impairment Polyneuropathy, unspecified Presence of cardiac pacemaker Pancytopenia Gait instability Pulmonary nodule Pilonidal cyst Venous insufficiency History of DVT (deep vein thrombosis) Dysphagia BPH w urinary obs/LUTS History of colonic polyps Anemia Gout Mixed hyperlipidemia Essential hypertension Chronic anticoagulation Chronic atrial fibrillation Surgical History H/O Spinal surgery Family History Mother No problems noted. Father CVA (cerebral vascular accident) Social History household members: spouse Smoking Status: Never smoker alcohol intake: never Smoking Status: Never smoker alcohol intake frequency: holidays/special occasions only Substance Use Type: does not use Exam Initial Vital Signs Initial Vital Signs: Vital Signs Temperature 96.3 F L 02/04/24 09:36 Pulse Rate 78 02/04/24 09:36 Respiratory Rate 15 02/04/24 09:36 Blood Pressure 158/73 H 02/04/24 09:36 Pulse Oximetry 99 02/04/24 09:36 Oxygen Delivery Method Room Air 02/04/24 09:36 Cardio Pulses: dorsalis pedis present on the right Skin General: no rashes or lesions noted Neuro Sensory Exam: no sensory deficits noted Extrem Other: Reports no discomfort with palpation in the medial lateral malleolus or along the Achilles tendon. Does have discomfort along the base of the 5th metatarsal. All these findings were on the right. Procedures Orthopedic Splinting/Casting Injury #1: Side: right Lower Extremity Injury Location: foot Lower Extremity Immobilizer: boot orthosis Post splinting neuro exam: intact Post splinting vascular exam: intact Placed by: Nursing Course Orders Ordered: ED Orders 02/04/24 09:40 XR ankle RT min 3V Stat 02/04/24 09:50 XR foot RT min 3V Stat Vital Signs Vital signs: Vital Signs - 8 hr 02/04/24 09:36 Temperature 96.3 F L Pulse Rate 78 Respiratory Rate 15 Blood Pressure 158/73 H Pulse Oximetry 99 Oxygen Delivery Method Room Air MDM - Extremity Injury (Lower) Imaging Data Extremity x-ray #1: My Impression: Right ankle x-ray has no acute pathology Extremity x-ray #2: Radiologist's Impression: Nondisplaced fracture base of 5th metatarsal on right MDM Narrative Medical decision making narrative: Patient is neurovascularly intact. He does have a base of the 5th metatarsal fracture on the right which does correspond to where he is having discomfort. He was placed in an orthopedic shoe. Discussed the case with Dr. Minor on- call for Orthopedic surgery. Will follow up as outpatient. Discharge Plan Departure Patient Disposition: Home Clinical Impression: Fracture of fifth metatarsal bone Instructions: DI for Foot Fracture, How to Use a Walking Boot Activity Restrictions/Additional Instructions: Continue to take all of your medications as directed. The orthopedic boat should be used when you were standing and walking. You can take it off to shower and also to sleep at night. As your starting to have less discomfort with walking you can use the boot less and less often. Recommend that you contact the Orthopedic Department of the number provided below for follow-up. Return to the emergency department for new symptoms. Prescriptions: No Action (DME) Jobst Anti-Embolism Stocking Misc See Rx Instructions .Route Qty: 2 1RF Rx Instructions: Jobst support socks, knee high, open toe, 30-40 mmHg ezetimibe 10 mg tablet 10 mg PO DAILY Qty: 90 3RF metoprolol succinate 25 mg tablet extended release 24 hr 12.5 mg PO DAILY Qty: 45 3RF Xarelto 20 mg tablet 20 mg PO DAILY Qty: 90 3RF rosuvastatin 40 mg tablet 40 mg PO DAILY Qty: 90 3RF donepezil 5 mg tablet 5 mg PO BEDTIME Qty: 30 0RF multivitamin Tablet 0.5 tab PO BID Referrals: Yunier Rivas MD [Primary Care Provider] - Morro Manjarrez MD [Physician] - Stand Alone Forms: Patient Portal/API
--- NOTE | 2024-02-04 10:50 | PC.NURSE ---
Right ankle/foot rolled last night
== END 2024-02-04 10:53 | disposition home or self-care (01) ==
PROVIDERS: Emergency Provider Emergency Medicine; Family Provider Internal Medicine; PCP Internal Medicine
DX: S92.351A Displaced fracture of fifth metatarsal bone, right foot, initial encounter for closed fracture (principal); X58.XXXA Exposure to other specified factors, initial encounter
CPT/HCPCS: 73610; 73630; 99283

== ENCOUNTER → 2024-02-18 12:09 | Outpatient (CLI) | payer MEDICARE, OTHER, SELFPAY ==
[2022-09-01 14:18] VITALS: BMI 25.0
--- NOTE | 2024-02-18 | DI.RAD.S_ITS ---
PROCEDURE: XR FOOT RT MIN 3V INDICATIONS: FRACTURE TECHNIQUE: 3 views of the foot were acquired. COMPARISON: [facility], CR, XR FOOT RT MIN 3V, 02/04/2024, 9:41. FINDINGS: Bones: Ongoing healing of mildly displaced comminuted fracture of the 5th metatarsal base with intra-articular extension. Plantar calcaneal enthesophyte. No suspicious bony lesions. Soft tissues: No tibiotalar joint effusion. Achilles tendon appears normal. IMPRESSION: Ongoing healing of comminuted minimally displaced intra-articular 5th metatarsal base fracture. No new fracture identified. Approved by: Radha Beal M.D.,Ph.D. on 02/18/2024 at 21:48
== END ==
LOC: RAD 12:13
PROVIDERS: Family Provider Internal Medicine; PCP Internal Medicine; Referring Provider Podiatrist; Visit Provider Podiatrist
DX: S92.354D Nondisplaced fracture of fifth metatarsal bone, right foot, subsequent encounter for fracture with routine healing (principal); M77.31 Calcaneal spur, right foot; X58.XXXD Exposure to other specified factors, subsequent encounter
CPT/HCPCS: 73630

== ENCOUNTER → 2024-03-22 16:15 | Outpatient (CLI) | payer MEDICARE, OTHER, SELFPAY ==
[2022-09-01 14:18] VITALS: BMI 25.0
--- NOTE | 2024-03-22 | DI.RAD.S_ITS ---
PROCEDURE: XR FOOT RT MIN 3V INDICATIONS: DUE TO A GLF TECHNIQUE: 3 views of the foot were acquired. COMPARISON: [facility], , XR FOOT RT MIN 3V, 02/18/2024, 12:21. FINDINGS: Bones: No fractures or dislocations. No suspicious bony lesions. Large plantar calcaneal spur. Comminuted base of the 5th metatarsal fracture shows softening the fracture lines and bridging callus. Soft tissues: No tibiotalar joint effusion. Achilles tendon appears normal. IMPRESSION: Healing base of the 5th metatarsal fracture Approved by: Morro Somers M.D. on 03/23/2024 at 18:05
== END ==
PROVIDERS: Family Provider Internal Medicine; PCP Internal Medicine; Referring Provider Podiatrist; Visit Provider Podiatrist
DX: S92.354D Nondisplaced fracture of fifth metatarsal bone, right foot, subsequent encounter for fracture with routine healing (principal); X58.XXXD Exposure to other specified factors, subsequent encounter
CPT/HCPCS: 73630

== ENCOUNTER → 2024-06-20 16:08 | Outpatient (CLI) | payer MEDICARE, OTHER, SELFPAY ==
[2022-09-01 14:18] VITALS: BMI 25.0
--- NOTE | 2024-06-20 16:13 | DI.RAD.S_ITS ---
PROCEDURE: XR FOOT RT MIN 3V INDICATIONS: R FOOT PAIN TECHNIQUE: . 3 views of the foot were acquired. COMPARISON: [facility], , XR FOOT RT MIN 3V, 03/22/2024, 16:23. FINDINGS: Bones: There is a healing fracture at the base of the 5th metatarsal bone. Calcaneal enthesopathy. Osteoarthritic changes of the tarsal tarsal joints, tarsometatarsal joints, the DIP joints , 1st MTP joint and 1st interphalangeal joints. No new displaced fracture. The bones appear demineralized. Soft tissues: No tibiotalar joint effusion. Achilles tendon appears normal. Vascular calcifications. IMPRESSION: 1. There is a healing fracture at the base of the 5th metatarsal bone. No new displaced fracture. 2. Osteoarthritic changes of the foot Dictated by: Klever Cuevas M.D. on 06/21/2024 at 9:29 Approved by: Klever Cuevas M.D. on 06/21/2024 at 10:44
== END ==
PROVIDERS: Family Provider Internal Medicine; PCP Internal Medicine; Referring Provider Podiatrist; Visit Provider Podiatrist
DX: S92.351D Displaced fracture of fifth metatarsal bone, right foot, subsequent encounter for fracture with routine healing (principal); M79.671 Pain in right foot
CPT/HCPCS: 73630

== ENCOUNTER → 2025-01-31 11:34 | Outpatient (CLI) | payer MEDICARE, OTHER, SELFPAY ==
[2022-09-01 14:18] VITALS: BMI 25.0
--- NOTE | 2025-01-31 11:36 | DI.RAD.S_ITS ---
PROCEDURE: XR HIP W PEL IF DONE LT 2V INDICATIONS: left hip pain, no trauma TECHNIQUE: Two views hip were acquired. COMPARISON: None. FINDINGS: Bones: Malleable plate and screws transfix an old fracture through the medial right ilium and superior pubic ramus. There is mild deformity although the fracture appears solid unified. SI and hip joints: Moderate right and mild left hip degeneration appreciated. There is also moderate right and mild left SI degeneration. Severe L3-4 L4-5 and L5-S1 degenerative disc disease noted. Soft tissues: No soft tissue swelling, calcification or mass. IMPRESSION: ORIF right hemipelvic fracture with mild deformity and solid osseous union. Moderate right hip and SI and mild left hip and SI degeneration Severe L3-4, L4-5 and L5-S1 degenerative disc disease Dictated by: Steve Christine M.D. on 02/01/2025 at 10:44 Approved by: Steve Christine M.D. on 02/01/2025 at 10:46
[2025-01-31 12:00] LABS: Hematocrit 39.8 % (41-53); Hemoglobin 13.4 g/dL (13.5-17.5); Mean Corpuscular HGB Conc 33.6 % (30-36); Mean Corpuscular Hemoglobin 30.5 PG (26-34); Mean Corpuscular Volume 90.8 fL (80-100); Platelet Count 152 X10^3/uL (150-400); Red Blood Cell Count 4.38 X10^6/uL (4.5-5.9); Red Cell Distribution Width 13.9 % (11.6-14.8)
[2025-01-31 12:32] LABS: Alanine Aminotransferase 42 IU/L (<50); Alkaline Phosphatase 61 U/L (38-126); Aspartate Aminotransferase 46 IU/L (17-59); BUN Creatinine Ratio 25.7 (6-22); Bilirubin Total 0.8 mg/dL (0.2-1.3); Blood Urea Nitrogen 26 mg/dL (9-20); Chloride 103 mmol/L (98-107); Cholesterol 132 mg/dL (140-199); Estimated Glomerular Filt Rate > 60 mL/min (>60); Glucose 112 mg/dL (80-110); HDL Cholesterol 80 mg/dL (40-60); HEMOLYSIS < 15 (0-50); LDL Cholesterol Calculated 41 mg/dL (<100); Potassium 4.7 mmol/L (3.4-5.1); Sodium 138 mmol/L (137-145); Triglycerides 54 mg/dL (35-150)
[2025-01-31 12:33] LABS: Albumin 4.8 g/dL (3.5-5.0); Albumin Globulin Ratio 2.2 (1.0-2.8); Carbon Dioxide 26 mmol/L (22-32); Globulin 2.2 g/dL (1.7-4.1)
[2025-01-31 12:57] LABS: Prostate Specific Antigen 1.98 ng/mL (0.10-4.00)
== END ==
LOC: LAB 11:35
PROVIDERS: Family Provider Internal Medicine; PCP Internal Medicine; Referring Provider Internal Medicine; Visit Provider Internal Medicine
DX: I10 Essential (primary) hypertension (principal); N40.1 Benign prostatic hyperplasia with lower urinary tract symptoms; M25.552 Pain in left hip; E78.2 Mixed hyperlipidemia; I34.0 Nonrheumatic mitral (valve) insufficiency; N13.8 Other obstructive and reflux uropathy; M51.369 Other intervertebral disc degeneration, lumbar region without mention of lumbar back pain or lower extremity pain; M51.379 Other intervertebral disc degeneration, lumbosacral region without mention of lumbar back pain or lower extremity pain; M16.0 Bilateral primary osteoarthritis of hip; Z98.890 Other specified postprocedural states
CPT/HCPCS: 36415; 73502; 80053; 80061; 84153; 85027

== ENCOUNTER 2025-05-17 14:16 | Day surgery (SDC) | payer MEDICARE, OTHER, SELFPAY ==
[2022-09-01 14:18] VITALS: BMI 25.0
[2025-05-11 09:49] VITALS: BMI 25.6
[2025-05-17] VITALS (8 sets, daily range): BP systolic 96–141; BP diastolic 56–82; PULSE 69–70; RESP 10–17; TEMP 36.4–36.8; O2SAT 93–99; BMI 25.6
[2025-05-17] MEDS: ACETAMINOPHEN 325 MG TABLET 975 MG PO (16:01)
[2025-05-17] MEDS: LACTATED RINGERS 1,000 ML 42 ML IV (16:03)
--- NOTE | 2025-05-17 16:24 | PM.PREOP ---
Pre-operative Note COVID-19 COVID-19 status: Not tested Interval Note History & Physical reviewed/Exam performed by Physician: Yes Changes to H&P: No ASA Class (for procedural sedation): II
--- NOTE | 2025-05-17 17:03 | SUR.OPER ---
Lithotomy on padded OR bed, head on pillow, arms secured on padded arm boards at <90 degrees abduction. Legs secured in padded yellow fins stirrups. Dr. Card in room at time of positioning, and approved position
[2025-05-17] MEDS: BUPIVACAINE LIPOSOME 266 MG/20 ML VIAL INJ (17:06)
--- NOTE | 2025-05-17 17:23 | P.OP_ITS ---
Operative Date/Time/Diagnoses Date of procedure: 05/17/25 Time of procedure: 17:23 Pre-op diagnosis: Perianal abscess Post-op diagnosis: same Procedure & Clinicians Procedure: Examination under anesthesia and incision and drainage of perianal abscess Same procedure(s) as scheduled: Yes Surgeon: Urbano Card Click Yes if Unassisted: Yes Anesthesia Type: General Operative Notes Findings: Superficial abscesses Applied: none Estimated Blood Loss (mL): 5 Procedure in detail: The patient is an 84-year-old man who presented with a draining perianal abscess. He was consented for possible incision and drainage versus seton or fistulotomy. The patient was brought to the operating room and general anesthesia was induced. He was positioned in high lithotomy. The perineum was prepped and draped in the usual fashion. A time-out was performed. A digital rectal exam was performed and was normal. There was a pinpoint draining tract in the skin of the right perineum about 7 cm from the anal verge. A small amount of purulent fluid to be expressed with palpation. There was some shiny skin around it and another spot about 2 cm away that also had a small opening in the skin which could be palpated to express additional purulent fluid. Exparel was injected around both of these spots. A 3 cm x 3 cm cruciate incision was made over the primary abscess. A small amount of purulent drainage was expressed. A 1 cm x 1 cm cruciate incision was made over the secondary location. A probe was inserted and these 2 wounds did connect in the subc utaneous space. No obvious subcutaneous tract could be palpated in the direction of the anus suggesting that these lesions were simple subcutaneous skin abscesses rather than a perirectal abscess or fistula. Additional Exparel was injected around both incisions and they were packed with 1/2 inch iodoform gauze. Sterile gauze was applied over the top of them and held in place with mesh underwear. The patient was awakened and brought to recovery room. Complications: none Post-operative Condition: stable Disposition: PACU
== END 2025-05-17 18:29 | disposition home or self-care (01) ==
PROVIDERS: PCP Internal Medicine; Referring Provider Surgery; Visit Provider Surgery
PROC: (CPT 46040; principal; 2025-05-17 16:00)
CPT/HCPCS: 46040; J0666; J2405; J2704

== ENCOUNTER → 2025-07-31 13:30 | Outpatient (CLI) | payer MEDICARE, OTHER, SELFPAY ==
[2022-09-01 14:18] VITALS: BMI 25.0
[2025-07-05 10:25] VITALS: BMI 25.0
--- NOTE | 2025-08-03 17:31 | DI.NM.S_ITS ---
DATE OF SERVICE: 07/31/2025 PHARMACOLOGICAL PERFUSION STUDY INDICATIONS: Fatigue, atrial fibrillation, permanent pacemaker. RADIOPHARMACEUTICAL: 25 millicurie technetium-99m Myoview IV was injected at stress and 25.8 mCi technetium-99m Myoview IV was injected at rest. CARDIAC STRESS: The patient underwent IV Lexiscan stress test under the supervision of an attending staff using standard intravenous Lexiscan as per protocol. The patient remained hemodynamically stable. Resting blood pressure 132/86. Baseline rhythm ventricular paced rhythm. During stress no new convincing ischemic changes. Occasional PVCs, but predominant rhythm was ventricular paced rhythm. No chest pain. No aminophylline was needed. RAW DATA: There is increased subdiaphragmatic activity. GATED STUDY: Resting LV ejection fraction 64 and stress LV ejection fraction 67% without any obvious wall motion abnormalities. Resting end- diastolic volume was 134 mL. TID ratio 0.95, which is within normal limits. MYOCARDIAL PERFUSION SCAN: Stress supine, resting supine, and stress prone images were compared to each other. Resting supine and stress supine images revealed moderate size, mild to moderately decreased perfusion of inferior wall extending into the inferior apex and distal anterior wall, which got significantly improved during stress prone images suggestive of tissue attenuation artifact. No convincing ischemia or infarction pattern. CONCLUSION: I will call this study likely a normal myocardial perfusion study with evidence of diaphragmatic tissue attenuation artifact which got significantly improved during stress prone images as stated above. Preserved LV function without any significant wall motion abnormalities. Underlying rhythm is ventricular paced. The patient had a perfusion study in August 2022 at that time also the patient had fixed inferior wall defect which got resolved during prone images. Overall, low-risk myocardial perfusion scan. Cooper Herrera - SACHI/mak/FUENTES doc#: [id number]/job#: [id number] dd: 08/03/2025 17:07:00 dt: 08/03/2025 17:21:00 DICTATING MD/COPIES TO: Lindy Silveira MD COPIES MNE: KATHERINE;
== END ==
LOC: NUCM 13:31
PROVIDERS: PCP Internal Medicine; Referring Provider Internal Medicine; Visit Provider Internal Medicine
DX: I48.11 Longstanding persistent atrial fibrillation (principal)
CPT/HCPCS: 78452; 93017; A9502; J2785

== ENCOUNTER → 2025-08-07 07:47 | Outpatient (CLI) | payer MEDICARE, OTHER, SELFPAY ==
[2025-07-05 10:25] VITALS: BMI 25.0
--- NOTE | 2025-08-07 07:50 | DI.CT.S_ITS ---
PROCEDURE: CT ABDOMEN PELVIS W CON INDICATIONS: Rule out left ischial decubitus ulcer TECHNIQUE: After the administration of intravenous contrast, axial sections acquired from the lung bases to the pubic symphysis. Coronal and sagittal reformats were performed. For radiation dose reduction, the following was used: automated exposure control, adjustment of mA and/or kV according to patient size. COMPARISON: [place], [place], [place] PET CT FUSION SKULL 2 THIGH, 10/21/2023, 8:14. FINDINGS: Image quality: Diagnostic Lower chest: Scattered atelectasis and scarring in the lower lungs. Partially seen cardiac electrode leads. Liver: Unremarkable Gallbladder and biliary system: Unremarkable, nondilated Pancreas: Possible small pancreatic cystic lesions for example on image 2/47 measuring 0.9 cm. This is stable No ductal dilation Spleen: Nonenlarged Adrenals: No discrete left-sided nodule. Peripherally calcified small nodule in the right measuring 1.1 cm. This is stable from 2022 likely benign. Kidneys: No hydronephrosis. No solid renal mass. Vessels and lymph nodes: Moderate aortoiliac atherosclerotic calcifications. There are retroperitoneal venous collaterals. IVC filter in place. No enlarged lymph nodes by size criteria. Bowel and peritoneum: No small bowel obstruction. No drainable abscess or ascites within the peritoneum moderate colonic fecal loading. Body wall: Unremarkable Pelvis: Partially obscured by metallic artifact. Bladder is under distended. Prostate bed is heterogeneous, not well assessed on this study. Bones: Right hemipelvis postsurgical changes and chronic deformities with periosteal thickening. No acute appearing fracture. Bilateral ischial tuberosity enthesopathy and calcifications along the hamstring origins. No definite osseous erosions. Lumbar and sacroiliac degenerative changes with ankylosis. No rim enhancing fluid collection identified in the left ischial region. There is mild edematous fat stranding. IMPRESSION: Mild edematous fat stranding along the left ischial tuberosity region. No osseous erosions, significant soft tissue gas, or rim enhancing fluid collection. The physical presence of an ulcer should be correlated with clinical exam. Calcifications and enthesopathy at the origins of the hamstring tendons. Right hemipelvis chronic appearing postsurgical changes, fracture deformities, and periosteal thickening. Small pancreatic cystic lesions, measuring up to 0.9 cm These can be better evaluated with abdominal MRI (pancreas protocol) at clinical discretion (not likely to be clinically significant in this age demographic). Other incidental/nonacute findings above Dictated by: Farhat Wilson M.D. on 08/07/2025 at 13:21 Approved by: Farhat Wilson M.D. on 08/07/2025 at 13:30
[2025-08-07 08:08] LABS: Estimated Glomerular Filt Rate > 60 mL/min (>60)
== END ==
LOC: CT 07:49
PROVIDERS: PCP Internal Medicine; Referring Provider Surgery; Visit Provider Surgery
DX: L89.319 Pressure ulcer of right buttock, unspecified stage (principal); K86.2 Cyst of pancreas; E27.9 Disorder of adrenal gland, unspecified; I70.0 Atherosclerosis of aorta; M47.816 Spondylosis without myelopathy or radiculopathy, lumbar region
CPT/HCPCS: 36415; 74177; 82565; Q9967

== ENCOUNTER → 2025-09-12 09:42 | Outpatient (CLI) | payer MEDICARE, OTHER, SELFPAY ==
[2025-07-05 10:25] VITALS: BMI 25.0
== END ==
LOC: WC 10:00
PROVIDERS: Family Provider Internal Medicine; PCP Internal Medicine; Referring Provider Surgery; Visit Provider Surgery
DX: L02.31 Cutaneous abscess of buttock (principal)
CPT/HCPCS: 99203; 99213

== ENCOUNTER 2025-09-14 07:44 | Emergency (ER) | payer MEDICARE, OTHER, SELFPAY ==
[2025-07-05 10:25] VITALS: BMI 25.0
[2025-09-14 07:55] VITALS: BP 161/77; PULSE 70; RESP 18; TEMP 36.4; O2SAT 99; BMI 25.0
--- NOTE | 2025-09-14 08:02 | ED.FALL ---
HPI - Fall General Chief Complaint: Fall Stated Complaint: Fall w/ right leg pain Time Seen by Provider: 09/14/25 07:51 Source: patient and family Mode of arrival: Wheelchair History of Present Illness HPI Narrative: Patient brought here by for ground level fall 9:00 p.m. last night at his house. Stepping up from done in room 2 their bedroom he tripped and landed on his right knee. Denies hitting his head no loss of consciousness. Patient does have history of atrial fibrillation on Xarelto. Patient has history of Alzheimer's, has history of gait instability with frequent falls. He has had previous right foot fracture right rib fracture and right pelvic fracture. Patient behaving at baseline according to . Denies any other pain. He did bump his left elbow but denies any pain at this time. Has full active range of motion of the left elbow. No skin injury seen on the knee or elbow. Related Data Home Medications ?Medication ?Instructions ?Recorded ?Confirmed multivitamin 0.5 tab PO BID 04/25/22 08/25/25 Previous Rx's ?Medication ?Instructions ?Recorded compress.stocking,knee,reg,med #2 ea 11/06/22 (Jobst Anti-Embolism Stocking) donepezil 10 mg tablet 10 mg PO BEDTIME #90 tabs 02/23/25 mirtazapine 15 mg tablet 15 mg PO BEDTIME #90 tabs 04/27/25 ezetimibe 10 mg tablet 10 mg PO DAILY #90 tabs 05/31/25 metoprolol succinate 25 mg 12.5 mg (1/2 x 25 mg) PO DAILY #45 05/31/25 tablet,extended release 24 hr tabs rivaroxaban 20 mg tablet (Xarelto) 20 mg PO DAILY #90 tabs 05/31/25 rosuvastatin 40 mg tablet 40 mg PO DAILY Cholesterol control 05/31/25 #90 tabs Allergies Allergy/AdvReac Type Severity Reaction Status Date / Time amoxicillin (AMOXICILLIN) Allergy Mild RASH AND Verified 09/14/25 07:55 ITCHING Review of Systems Review of Systems Narrative: GENERAL: Negative chills, fatigue, malaise, fever, sweats. HEENT: Negative sinus pain, ear pain, sore throat RESPIRATORY: Negative dyspnea, cough CARDIOVASCULAR: Negative chest pain, palpitations GASTROINTESTINAL: Negative vomiting, nausea, abdominal pain : Negative dysuria, frequency, hematuria MUSCULOSKELETAL: Positive muscle or bony pain SKIN: Negative rash, skin lesions NEUROLOGIC: Negative weakness, numbness ROS Unobtainable: All systems reviewed & are unremarkable except as noted in HPI and below Patient History Medical History (Updated 09/14/25 @ 09:45 by Yassine Michaels MD) HLD (hyperlipidemia) RAFAEL (obstructive sleep apnea) SSS (sick sinus syndrome) (2022) TBI (traumatic brain injury) (~2001) Valvular heart disease Murmur, cardiac Presence of IVC filter (~2001) Alcoholism Depression, major, recurrent Mitral regurgitation Alzheimer's dementia Mild cognitive impairment Polyneuropathy, unspecified Presence of cardiac pacemaker Pancytopenia Gait instability Pulmonary nodule Pilonidal cyst Venous insufficiency History of DVT (deep vein thrombosis) Dysphagia BPH w urinary obs/LUTS History of colonic polyps Anemia Gout Mixed hyperlipidemia Essential hypertension Chronic anticoagulation Chronic atrial fibrillation Surgical History (Updated 05/11/25 @ 10:19 by Keysha Austin RN) S/P ORIF (open reduction internal fixation) fracture (~2001) H/O Spinal surgery Family History Mother No problems noted. Father CVA (cerebral vascular accident) Social History details: ([place]), retired household members: spouse Smoking Status: Former smoker alcohol intake: former Smoking Status: Former smoker alcohol intake frequency: holidays/special occasions only Exam Narrative Exam Narrative: GENERAL: in no distress, not toxic not dyspneic HEAD: Normocephalic. EYES: Pupils equal round ENT: Mucous membranes moist. NECK: Trachea midline. EXTREMITIES: No gross deformities. Right knee to toes exposed. Nontender ankle and hip. There is tenderness to the lateral right knee but no bruising skin injury effusion. Patient able to fully extend. Pain with flexion to 90?. There is pain but no laxity of the right knee with anterior posterior medial lateral and rotational stress of the right leg. NEURO: AOx2. Clear speech SKIN: Warm and dry PSYCH: Not anxious, is cooperative Initial Vital Signs Initial Vital Signs: Vital Signs Temperature 97.5 F L 09/14/25 07:55 Pulse Rate 70 09/14/25 07:55 Respiratory Rate 18 09/14/25 07:55 Blood Pressure 161/77 H 10/23/25 07:55 Pulse Oximetry 99 09/14/25 07:55 Oxygen Delivery Method Room Air 09/14/25 07:55 Course Orders Ordered: ED Orders 09/14/25 08:01 XR knee RT 3V Stat 09/14/25 08:31 Ct Knee right without con Stat Discontinued Medications Hydrocodone Bitart/Acetaminophen (Hydrocodone/Acet 5/325 Tablet) 1 tab PO NOW ONE Stop: 09/14/25 08:02 Last Admin: 09/14/25 08:12 Dose: 1 tab Documented By: THADDEUS Ondansetron HCl (Ondansetron 4 Mg Odt) 4 mg SL NOW ONE Stop: 09/14/25 08:02 Last Admin: 09/14/25 08:12 Dose: 4 mg Documented By: THADDEUS Vital Signs Vital signs: Vital Signs - 8 hr 09/14/25 07:55 09/14/25 08:33 09/14/25 09:00 Temperature 97.5 F L Pulse Rate 70 70 Respiratory Rate 18 Blood Pressure 161/77 H 126/66 Pulse Oximetry 99 98 Oxygen Delivery Method Room Air 09/14/25 09:00 09/14/25 09:13 09/14/25 09:13 Temperature Pulse Rate 70 70 Respiratory Rate Blood Pressure 144/86 H Pulse Oximetry 98 98 Oxygen Delivery Method 09/14/25 09:30 09/14/25 09:30 Temperature Pulse Rate 70 Respiratory Rate Blood Pressure 124/67 Pulse Oximetry 96 Oxygen Delivery Method MDM - Fall Imaging Data Extremity x-ray #1: Radiologist's Impression: [address] [address] XRay Report Signed Patient: Cooper Herrera MR#: [id number] : 1940 Acct:[id number] Age/Sex: 84 / M Date of Service: 09/14/25 Loc: ED Accession Number: [id number] Procedure: XR knee RT 3V Ordering Provider: Yassine Michaels MD PROCEDURE: XR KNEE RT 3V INDICATIONS: Pain/fall/lateral knee pain TECHNIQUE: 3 views of the knee were acquired. COMPARISON: None. FINDINGS: Bones: No fractures or dislocations. Chondrocalcinosis and mild osteophytosis. No suspicious bony lesions. Soft tissues: Trace joint effusion. No suspicious soft tissue calcifications. IMPRESSION: No acute bony abnormality. CPPD arthropathy. Dictated by: Mario Peterson M.D. on 09/14/2025 at 8:27 Approved by: Mario Peterson M.D. on 09/14/2025 at 8:28 Extremity x-ray #2: Radiologist's Impression: [address] [address] [address] Scan Report Signed Patient: Cooper Herrera MR#: [id number] : 1940 Acct:[id number] Age/Sex: 84 / M Date of Service: 09/14/25 Loc: ED Accession Number: [id number] Procedure: Ct Knee right without con Ordering Provider: Yassine Michaels MD PROCEDURE: CT KNEE RIGHT WITHOUT CON INDICATIONS: Pain/injury to RIGHT knee TECHNIQUE: Noncontrast 1-1.5 mm axial sections acquired from the mid-patella to the proximal tibia, with coronal and sagittal reformats. COMPARISON: [facility], CR, XR KNEE RT 3V, 09/14/2025, 8:02. FINDINGS: Image quality: Excellent. Bones: Extensive chondrocalcinosis. Small osteophytes. No identifiable fractures. Soft tissues: Trace effusion. IMPRESSION: No fractures evident by CT. Comment: If suspect microtrabecular fracture, consider MRI. Dictated by: Mario Peterson M.D. on 09/14/2025 at 9:24 Approved by: Mario Peterson M.D. on 09/14/2025 at 9:27 [facility] Narrative Medical decision making narrative: Patient brought here by for ground level fall 9:00 p.m. last night at his house. Stepping up from done in room 2 their bedroom he tripped and landed on his right knee. Denies hitting his head no loss of consciousness. Patient does have history of atrial fibrillation on Xarelto. Patient has history of Alzheimer's, has history of gait instability with frequent falls. He has had previous right foot fracture right rib fracture and right pelvic fracture. Patient behaving at baseline according to . Denies any other pain. He did bump his left elbow but denies any pain at this time. Has full active range of motion of the left elbow. No skin injury seen on the knee or elbow. MDM After history and exam, x-ray right knee hydrocodone Zofran Differential considered: Includes but not limited to knee fracture contusion dislocation Medical records reviewed: April 27, 2025 primary care office visit notes Imaging studies independently reviewed: X-ray right knee no acute bony finding Consultations: None indicated at this time Re-evaluations: 9:45 a.m.. Updated patient and results. Return precautions reviewed. They agree with Lincoln wrap and home with a walker as he is not stable with crutches or a cane. Referral for Orthopedics provided. Repeat imaging if not improving 7-10 days likely MRI. They agree with treatment plan. Tylenol for pain. Pain is controlled. They desire discharge home. Discussion: Appropriate for discharge home exam is reassuring. Return precautions reviewed with patient and . They desire discharge home Diagnosis: Right knee contusion Discharge Plan Departure Patient Disposition: Home Clinical Impression: Contusion of knee, right Qualifiers: Encounter type: initial encounter Qualified Code(s): S80.01XA - Contusion of right knee, initial encounter Instructions: DI for Contusion, DI for Knee Pain Activity Restrictions/Additional Instructions: Please use Lincoln wrap on your knee for comfort. May continue Tylenol for pain. Use walker for ambulation until office appointment time with your family doctor or provided orthopedic office. May need MRI of your knee for more detail imaging for your cartilage or ligaments if not improving in 7 or 10 days. Return if worse if any questions or concerns Prescriptions: No Action (DME) Jobst Anti-Embolism Stocking Misc See Rx Instructions .Route Qty: 2 1RF Rx Instructions: Jobst support socks, knee high, open toe, 30-40 mmHg donepezil 10 mg tablet 10 mg PO BEDTIME Qty: 90 3RF ezetimibe 10 mg tablet 10 mg PO DAILY Qty: 90 2RF Xarelto 20 mg tablet 20 mg PO DAILY Qty: 90 2RF rosuvastatin 40 mg tablet 40 mg PO DAILY Qty: 90 2RF metoprolol succinate 25 mg tablet extended release 24 hr 12.5 mg PO DAILY Qty: 45 3RF multivitamin Tablet 0.5 tab PO BID mirtazapine 15 mg tablet 15 mg PO BEDTIME Qty: 90 3RF Referrals: Yunier Rivas MD [Primary Care Provider, Internal Medicine] Candy Mann DO [Physician, Orthopedic Surgery] Stand Alone Forms: Patient Portal/API
[2025-09-14 08:10] VITALS: BMI 25.0
[2025-09-14] MEDS: ONDANSETRON 4 MG ODT SL (08:12)
--- NOTE | 2025-09-14 08:31 | DI.CT.S_ITS ---
PROCEDURE: CT KNEE RIGHT WITHOUT CON INDICATIONS: Pain/injury to RIGHT knee TECHNIQUE: Noncontrast 1-1.5 mm axial sections acquired from the mid-patella to the proximal tibia, with coronal and sagittal reformats. COMPARISON: [facility], CR, XR KNEE RT 3V, 09/14/2025, 8:02. FINDINGS: Image quality: Excellent. Bones: Extensive chondrocalcinosis. Small osteophytes. No identifiable fractures. Soft tissues: Trace effusion. IMPRESSION: No fractures evident by CT. Comment: If suspect microtrabecular fracture, consider MRI. Dictated by: Mario Peterson M.D. on 09/14/2025 at 9:24 Approved by: Mario Peterson M.D. on 09/14/2025 at 9:27
--- NOTE | 2025-09-14 08:31 | PC.NURSE ---
patient has minor swelling noted to right knee.
[2025-09-14 08:33] VITALS: PULSE 70; O2SAT 98
[2025-09-14 09:00] VITALS: BP 126/66; PULSE 70; O2SAT 98
[2025-09-14 09:13] VITALS: BP 144/86; PULSE 70; O2SAT 98
[2025-09-14 09:30] VITALS: BP 124/67; PULSE 70; O2SAT 96
== END 2025-09-14 10:05 | disposition home or self-care (01) ==
PROVIDERS: Emergency Provider Emergency Medicine; Family Provider Internal Medicine; PCP Internal Medicine
DX: S80.01XA Contusion of right knee, initial encounter (principal); W01.0XXA Fall on same level from slipping, tripping and stumbling without subsequent striking against object, initial encounter; Z79.01 Long term (current) use of anticoagulants
CPT/HCPCS: 73562; 73700; 99283; 99284

== ENCOUNTER → 2025-09-21 10:26 | Outpatient (CLI) | payer MEDICARE, OTHER, SELFPAY ==
[2025-07-05 10:25] VITALS: BMI 25.0
[2025-09-21 11:43] LABS: Hematocrit 33.4 % (41-53); Hemoglobin 11.5 g/dL (13.5-17.5); Mean Corpuscular HGB Conc 34.4 % (30-36); Mean Corpuscular Hemoglobin 30.8 PG (26-34); Mean Corpuscular Volume 89.5 fL (80-100); Platelet Count 172 X10^3/uL (150-400)
[2025-09-21 12:14] LABS: Alanine Aminotransferase 27 IU/L (<50); Albumin 4.3 g/dL (3.5-5.0); Albumin Globulin Ratio 1.9 (1.0-2.8); Alkaline Phosphatase 59 U/L (38-126); Blood Urea Nitrogen 22 mg/dL (9-20); Calcium 9.3 mg/dL (8.4-10.2); Carbon Dioxide 28 mmol/L (22-32); Chloride 100 mmol/L (98-107); Estimated Glomerular Filt Rate > 60 mL/min (>60); Globulin 2.3 g/dL (1.7-4.1); Glucose 96 mg/dL (70-99); HEMOLYSIS < 15 (0-50); Potassium 4.4 mmol/L (3.4-5.1); Sodium 136 mmol/L (137-145); Total Protein 6.6 g/dL (6.3-8.2)
[2025-09-21 12:46] LABS: TSH w/ Reflex to FT4 1.38 uIU/mL (0.47-4.68)
== END ==
PROVIDERS: Family Provider Internal Medicine; PCP Internal Medicine; Referring Provider Internal Medicine; Visit Provider Internal Medicine
DX: D64.9 Anemia, unspecified (principal); I10 Essential (primary) hypertension; K59.01 Slow transit constipation
CPT/HCPCS: 36415; 80053; 84443; 85027

== ENCOUNTER → 2025-10-03 09:13 | Outpatient (CLI) | payer MEDICARE, OTHER, SELFPAY ==
[2025-07-05 10:25] VITALS: BMI 25.0
== END ==
LOC: WC 09:53
PROVIDERS: Family Provider Internal Medicine; PCP Internal Medicine; Referring Provider Internal Medicine; Visit Provider Surgery
DX: L02.31 Cutaneous abscess of buttock (principal)
CPT/HCPCS: 99213

== ENCOUNTER → 2025-10-16 10:20 | Outpatient (CLI) | payer MEDICARE, OTHER, SELFPAY ==
[2025-07-05 10:25] VITALS: BMI 25.0
--- NOTE | 2025-10-16 10:21 | DI.US.S_ITS ---
PROCEDURE: US PERIPH VENOUS LOW EXTREM LT INDICATIONS: left leg pain TECHNIQUE: Real-time imaging, as well as color and pulse Doppler interrogation, were performed of the lower extremity deep veins from the inguinal ligament to the popliteal fossa, with documentation of the visualized calf veins. COMPARISON: None. FINDINGS AND IMPRESSION: Acute appearing DVT seen from the common femoral vein to the lower leg veins. More proximally in the common femoral vein, there also fibrotic changes with peripheral echogenic material, probably scarring from older thrombus. Dictated by: Farhat Wilson M.D. on 10/16/2025 at 10:53 Approved by: Farhat Wilson M.D. on 10/16/2025 at 10:54
== END ==
PROVIDERS: Family Provider Internal Medicine; PCP Internal Medicine; Referring Provider Internal Medicine; Visit Provider Internal Medicine
DX: I82.412 Acute embolism and thrombosis of left femoral vein (principal); M79.605 Pain in left leg
CPT/HCPCS: 93971